=== PATIENT | female | born 1995 | race Two or more races ===

== ENCOUNTER 2024-11-26 03:33 | Emergency (ER) | payer MEDICAID, SELFPAY ==
--- NOTE | 2024-11-26 03:34 | EKG_ITS ---
[facility] Test Date: 2024-11-26 Pat Name: KRUPA PINEDA Department: Room: - Gender: Female Supervisor Dock: : 1995 Requested By: ED Temporary Provider Order Number: [id number] Reading MD: ED Temporary Provider Measurements Intervals [place] Rate: 93 P: 56 [place]: 153 QRS: 30 QRSD: 78 T: 34 QT: 341 QTc: 426 Interpretive Statements SINUS RHYTHM Compared to ECG 01/27/2024 23:21:15 No significant changes /store/S0/[id number]
[2024-11-26 03:35] VITALS: BMI 30.4
[2024-11-26 03:43] VITALS: BP 117/82; PULSE 98; RESP 17; TEMP 36.7; O2SAT 98
--- NOTE | 2024-11-26 03:52 | PD.EDRME ---
Rapid Medical Screening Exam RME Arrival date/time: 11/26/24 03:33 29 yo f present to Ed for c/o rapid hr for 3 day I have greeted and performed a focused initial assessment of this patient. A comprehensive ED assessment and evaluation of the patient, analysis of all test results, and completion of the medical decision making process will be conducted by additional ED providers. Chief Complaint: Arrhythmia/Palpitations Time Seen by Provider: 11/26/24 03:36 Vital signs: Vital Signs Temperature 98.0 F 11/26/24 03:43 Pulse Rate 98 11/26/24 03:43 Respiratory Rate 17 11/26/24 03:43 Blood Pressure 117/82 11/26/24 03:43 Pulse Oximetry (%) 98 11/26/24 03:43 Oxygen Delivery Method Room Air 11/26/24 03:43
[2024-11-26 04:02] LABS: Basophils % (Auto) 0 % (0-2.5); Eosinophils # (Auto) 0.2 Thou/mm3 (0.0-0.5); Eosinophils % (Auto) 2 % (0-10); Hematocrit 35.7 % (36.0-46.0); Hemoglobin 11.9 g/dL (12.0-16.0); Immature Granulocytes % (Auto) 1 % (0-0); Immature Granulocytes Auto 0.05 Thou/mm3 (0.00-0.00); Lymphocytes # (Auto) 2.1 Thou/mm3 (1.0-4.8); Lymphocytes % (Auto) 22 % (10-50); Mean Corpuscular HGB Conc 33.3 g/dl (31.0-37.0); Mean Corpuscular Hemoglobin 27.4 pg (25.0-35.0); Mean Corpuscular Volume 82 fL (80-100); Monocytes # (Auto) 0.6 Thou/mm3 (0.0-0.8); Monocytes % (Auto) 7 % (0-12); Neutrophils # (Auto) 6.3 Thou/mm3 (1.8-7.7); Neutrophils % (Auto) 69 % (37-80); Nucleated Red Blood Cell % 0 /100 WBC (0); Platelet Count 263 Thou/mm3 (140-440); RDW Standard Deviation 40.8 fL (36.4-46.3); Red Blood Count 4.34 Miln/mm3 (4.00-5.20); White Blood Count 9.3 Thou/mm3 (3.6-11.0)
[2024-11-26 04:26] LABS: Alanine Aminotransferase 11 U/L (10-49); Albumin, Serum 4.5 gm/dL (3.5-5.0); Albumin/Globulin Ratio 1.6 (1.2-2.2); Alkaline Phosphatase 89 U/L (46-116); Anion Gap 8 (7-16); Aspartate Amino Transferase 14 U/L (0-34); BUN/Creatinine Ratio 14 Ratio (12-20); Bilirubin,Total 0.5 mg/dL (0.3-1.2); Blood Urea Nitrogen 11 mg/dL (9-23); Calcium 9.3 mg/dL (8.3-10.6); Calcium (Corrected) 9.3 mg/dL (8.5-10.1); Chloride 107 mMol/L (98-107); Creatinine (Component) 0.8 mg/dL (0.6-1.3); Estimated Creatinine Clearance 104.5 mL/min (>60); Globulin 2.8 gm/dL (2.3-3.5); Glucose 163 mg/dL (74-106); HCG,Qualitative Serum Negative; Lipase 39 U/L (12-53); Osmolality,Calculated 280 (275-295); Potassium 3.8 mMol/L (3.4-5.1); Sodium 139 mMol/L (136-145); Total Protein 7.3 gm/dL (5.7-8.2); Troponin I < 0.002 ng/mL (0.0-0.045); eGFR > 60 See Note
--- NOTE | 2024-11-26 05:19 | PD.EDARRY ---
ED Arrhythmia Palp. RME/HPI General Chief Complaint: Arrhythmia/Palpitations Stated Complaint: Heartburn x3 days/palpitations Time Seen by Provider: 11/26/24 03:36 Arrival date/time: 11/26/24 03:33 29 year old female present to emergency room with c/o of intermittent heart burn and palpitation for 3 days SEVERITY: Symptoms are described as being severe with limitations on activities of daily living CONTEXT: The patient is unable to identify any inciting events. DURATION/TIMING: The symptoms started approximately 3 days ago and have been constant since and have been progressive getting worse. ASSOCIATED SYMPTOMS: The patient is unable to identify any other associated symptoms. MODIFYING FACTORS: The patient is unable to identify any alleviating or aggravating symptoms. PERTINENT ROS: no fevers, no cough, no pleuritic pain, no ripping or tearing sensations, denies any lower extremity edema and no unilateral swelling, no chest pain/shortness of breath no nausea,vomiting, diarrhea, no dizziness/headache no rash no loc/syncope episode no abd/back pain REVIEW OF SYSTEMS: See History of Present Illness - with the exception of those mentioned in the history of present illness, all other systems reviewed and reported as negative GENERAL: In general the patient is awake, interactive, in an emergency department gurney. HEAD/EYES/EARS/NOSE/THROAT: normo-cephalic, atraumatic, mucus membranes are moist, anicteric, palpebral conjunctiva is pink, trachea is midline. CARDIOVASCULAR: regular rate and regular rhythm, no murmurs, heart sounds are not distant, strong pulses in all four extremities that are equal and symmetric bilateral upper and lower extremities, normal capillary refill. CHEST/PULMONARY: normal chest rise and fall, good air movement, clear to auscultation bilaterally, normal inspiratory to expiratory ratios without evidence of respiratory distress. NECK: No midline/Paraspinal tenderness, no step off ROM/Strenght intact No Kernig and bruzinski sign. No trauma ABDOMEN: soft, not tender, no masses appreciated BACK: normal range of motion without pain. NEUROLOGICAL: cranio-facial features are symmetric, moves all four extremities equally without obvious limitations or weakness. EXTREMITY: no tenderness to palpation over the long bones or large joints of the bilateral upper and lower extremities, no joint swelling, no joint erythema, no signs of trauma, no unilateral leg swelling and no peripheral edema. SKIN: warm, dry, well-perfused, no jaundice, no rash, no telangiectasias or petechia. PSYCH: calm, cooperative, no evidence of psychosis or agitation RME / HPI RME / HPI narrative: 11/26/24 03:33 29 yo f present to Ed for c/o rapid hr for 3 day I have greeted and performed a focused initial assessment of this patient. A comprehensive ED assessment and evaluation of the patient, analysis of all test results, and completion of the medical decision making process will be conducted by additional ED providers. Related Data Home Medications ?Medication ?Instructions ?Recorded ?Confirmed prenat.vits,aliya,nqj-ktrp-arawk 1 tab PO QDAY 12/07/23 03/10/24 aspirin 81 mg tablet,delayed 81 mg PO QDAY 12/26/23 03/10/24 release insulin aspart U-100 100 unit/mL 10 unit subcut AC 12/26/23 03/10/24 (3 mL) subcutaneous pen (Novolog FlexPen U-100 Insulin aspart) insulin detemir U-100 100 unit/mL 30 unit subcut QAM 12/26/23 03/10/24 (3 mL) subcutaneous pen (Levemir FlexPen) insulin detemir U-100 100 unit/mL 14 unit subcut HS 02/16/24 03/10/24 (3 mL) subcutaneous pen (Levemir FlexPen) Previous Rx's ?Medication ?Instructions ?Recorded acetaminophen 300 mg-codeine 30 mg 1 tab PO Q8H PRN pain #14 tabs 03/12/24 tablet ibuprofen 800 mg tablet 800 mg PO Q8H PRN pain #30 tabs 03/12/24 metronidazole 500 mg tablet 500 mg PO Q12H #14 tabs 03/12/24 Allergies Allergy/AdvReac Type Severity Reaction Status Date / Time No Known Allergies Allergy Verified 03/10/24 07:05 Course Course Course Narrative: Patient presenting with palpitations.? Vital signs were reviewed and were unremarkable.? ECG obtained and reviewed which showed NSR.? Labs obtained as noted above and showed no major abnormalities.? TSH was normal.? Patient without chest pain or shortness of breath to suggest ACS or PE.?? History, physical exam, laboratory, and radiographic findings were discussed with the patient.? At this time, it is felt that the most likely explanation for the patient's symptoms is palpitations.? No pathophysiologic cause of palpitations found at this time.? Given that patient is asymptomatic and has an appropriate rate at this time, patient appears safe for discharge.? The patient expressed understanding of and agreement with this plan.? Symptomatic care was discussed.? I advised that patient refrain from caffeine, tobacco, alcohol or other stimulants.? Patient is to follow up with primary care provider within? week to discuss these findings.? Opportunity was given for questions prior to discharge and all stated questions were answered to the patient's satisfaction.? Home care instructions provided.? Patient remained hemodynamically stable through ED course and was discharged home without event.? Quality Measures none Orders Category Date Time Status EKG (ED ONLY) *Do not use* NOW Care 11/26/24 03:34 Completed EKG (ED Only) Stat Exams 11/26/24 03:34 Draft CBC Stat Lab 11/26/24 03:56 Completed CMP [Comprehensive Metabolic Panel] Stat Lab 11/26/24 03:56 Completed HCG,Qualitative Serum Stat Lab 11/26/24 03:56 Completed Lipase Stat Lab 11/26/24 03:56 Completed TSH [Thyroid Stimulating Hormone] Stat Lab 11/26/24 03:56 Completed Troponin I Stat Lab 11/26/24 03:56 Completed Vital Signs Vital signs: Vital Signs Temperature 98.0 F 11/26/24 03:43 Pulse Rate 98 11/26/24 03:43 Respiratory Rate 17 11/26/24 03:43 Blood Pressure 117/82 11/26/24 03:43 Pulse Oximetry (%) 98 11/26/24 03:43 Oxygen Delivery Method Room Air 11/26/24 03:43 Arrhythmia/Palpitations Patient data External records reviewed:: [facility] previous records Clinical information provided by:: patient Social determinants that could affect healthcare access:: none Patient has the following chronic illnesses:: n/a How is presenting disease/condition affected by chronic disease/condition?: no chronic disease Evaluation data The following diagnostics were reviewed and interpreted by me:: lab results and EKG tracing(s) Lab and/or radiology exams considered but not ordered:: n.a Interpretation Summary: cbc/cmp/trop/tsh/hcg wnl/negative Medications / Prescriptions Medications or Prescriptions considered but not ordered:: n/a Medication administrations:: n/a Consultations Consultation(s) initiated? (list below): No Diagnosis Most likely diagnosis given after review of the tests above:: heart palpatition Admission Indicated Admission indicated?: not indicated Admission Request Was there a request for admission?: No Disposition Plan Disposition Plan: Discharge Discharge Attestation Discharge Attestation: The patient and all family members were given an opportunity to ask questions and understood the discharge instructions. Discharge instructions specifically effects, indications for sooner follow up or return to the emergency department, and the expected course of current diagnosis. Patient condition: Stable Discharge Plan Plan Patient Disposition: HOME (Self Care) Health Concerns: Follow with PMD as directed Return to ED if sx worsen Prescriptions/Referrals Prescriptions/Med Rec: No Action Levemir FlexPen 100 unit/mL (3 mL) insulin pen 14 unit SUBCUT HS Patient Comments: INJECT 30 UNITS SUBCUTANEOUSLY AT 8 AM , AND 10 UNITS AT 10 PM metronidazole 500 mg tablet 500 mg PO Q12H Qty: 14 0RF acetaminophen-codeine 300-30 mg tablet 1 tab PO Q8H PRN (Reason: pain) Qty: 14 0RF ibuprofen 800 mg tablet 800 mg PO Q8H PRN (Reason: pain) Qty: 30 0RF Vitamin Tablet 1 tab PO QDAY aspirin 81 mg tablet,delayed release (DR/EC) 81 mg PO QDAY Patient Comments: TAKE 2 TABLETS BY MOUTH EVERY DAY insulin aspart U-100 [Novolog FlexPen U-100 Insulin] 100 unit/mL (3 mL) insulin pen 10 unit SUBCUT AC Levemir FlexPen 100 unit/mL (3 mL) insulin pen 30 unit SUBCUT QAM Patient Comments: INJECT 30 UNITS SUBCUTANEOUSLY AT 8 AM , AND 10 UNITS AT 10 PM Problem List Clinical Impression: Palpitations Patient/Caregiver Discharge Instructions Education Materials: ED Palpitations Print Language: Danish Stand Alone Forms: Sherry Award Info., Patient Portal Info Letter
[2024-11-26 05:25] VITALS: BP 116/72; PULSE 76; RESP 16; TEMP 36.6; O2SAT 98
== END 2024-11-26 11:59 | disposition home or self-care (01) ==
LOC: SERX 06:49
PROVIDERS: Physician Assistant; Emergency Provider Emergency Medicine; PCP Family Medicine
DX: R00.2 Palpitations (principal)
CPT/HCPCS: 36415; 80053; 83690; 84443; 84484; 84703; 85025; 93005; 99283

== ENCOUNTER 2025-01-01 07:00 | Emergency (ER) | payer MEDICAID, SELFPAY ==
[2025-01-01 07:15] VITALS: BP 121/83; PULSE 83; RESP 17; TEMP 36.9; O2SAT 99; BMI 29.5
--- NOTE | 2025-01-01 07:31 | XR_ITS ---
Examination: CT abdomen and pelvis without contrast. Coronal 3-D reconstructions. Sagittal 2-D reconstructions. Date and time of exam:January 01, 2025 0956 hours Comparison June 12, 2023 INDICATIONS: Onset generalized abdominal pain right flank pain today, history bilateral renal calculi CTDI: vol (mGy): 8.34 DLP: (mGycm): 182 Technique: Axial images of the abdomen have been obtained, 3 mm slice thickness Intravenous contrast material has not been administered. Low dose protocols were performed. One or more of the following dose reduction techniques were used; automated exposure control, adjustment of the mA and/or KV according to patient size, use of iterative reconstruction technique. Findings: No focal liver or splenic lesions Absent gallbladder No pancreatic or adrenal mass 1 mm bilateral renal calculi No hydronephrosis or ureteral calculi Aorta normal size Normal appendix No bowel obstruction or diverticulitis Anteverted uterus No bladder mass or bladder calculi Osseous structures intact IMPRESSION: Tiny bilateral nonobstructing renal calculi No hydronephrosis or ureteral calculi Normal appendix No bladder mass or bladder calculi
[2025-01-01 08:32] LABS: Collection Type, Urine Clean Catch
[2025-01-01 08:47] LABS: Basophils % (Auto) 0 % (0-2.5); Eosinophils # (Auto) 0.1 Thou/mm3 (0.0-0.5); Eosinophils % (Auto) 1 % (0-10); Hematocrit 34.9 % (36.0-46.0); Hemoglobin 11.9 g/dL (12.0-16.0); Immature Granulocytes % (Auto) 1 % (0-0); Immature Granulocytes Auto 0.04 Thou/mm3 (0.00-0.00); Lymphocytes % (Auto) 25 % (10-50); Mean Corpuscular HGB Conc 34.1 g/dl (31.0-37.0); Mean Corpuscular Hemoglobin 27.7 pg (25.0-35.0); Mean Corpuscular Volume 81 fL (80-100); Monocytes # (Auto) 0.6 Thou/mm3 (0.0-0.8); Monocytes % (Auto) 7 % (0-12); Neutrophils # (Auto) 5.5 Thou/mm3 (1.8-7.7); Neutrophils % (Auto) 67 % (37-80); Nucleated Red Blood Cell % 0 /100 WBC (0); Platelet Count 250 Thou/mm3 (140-440); RDW Standard Deviation 41.5 fL (36.4-46.3); Red Blood Count 4.29 Miln/mm3 (4.00-5.20); White Blood Count 8.2 Thou/mm3 (3.6-11.0)
[2025-01-01 08:50] LABS: Bilirubin,Urine Negative (Negative); Blood,Urine Negative (Negative); Clarity,Urine Clear (Clear/Hazy); Color,Urine Lt-Yellow (Lt Yel-Yel); Culture Indicated,Urine Not Indicated; Glucose, Urine Negative (Negative); Ketones,Urine Negative (Negative); Leukocyte Esterase,Urine Positive (Negative); Nitrite,Urine Negative (Negative); Protein,Urine Negative (Neg - Trace); RBC,Urine 2 /hpf (0-3); Specific Gravity,Urine 1.012 (1.001-1.035); Squamous Epithelial Cell,Urine 4 /hpf (0-5); Urobilinogen,Urine Negative mg/dL (0.0-1.0); WBC,Urine 3 /hpf (0-5)
[2025-01-01 09:00] LABS: HCG Qualitative,Urine Negative
[2025-01-01 09:06] LABS: Alanine Aminotransferase 10 U/L (10-49); Albumin, Serum 4.6 gm/dL (3.5-5.0); Albumin/Globulin Ratio 1.6 (1.2-2.2); Alkaline Phosphatase 76 U/L (46-116); Anion Gap 9 (7-16); Aspartate Amino Transferase 16 U/L (0-34); BUN/Creatinine Ratio 10 Ratio (12-20); Bilirubin,Total 0.6 mg/dL (0.3-1.2); Blood Urea Nitrogen 7 mg/dL (9-23); Carbon Dioxide 23.3 mMol/L (20.0-31.0); Chloride 106 mMol/L (98-107); Creatinine (Component) 0.7 mg/dL (0.6-1.3); Estimated Creatinine Clearance 117.7 mL/min (>60); Globulin 2.9 gm/dL (2.3-3.5); Glucose 125 mg/dL (74-106); Lipase 50 U/L (12-53); Osmolality,Calculated 274 (275-295); Potassium 4.2 mMol/L (3.4-5.1); Sodium 138 mMol/L (136-145); Total Protein 7.5 gm/dL (5.7-8.2); eGFR > 60 See Note
--- NOTE | 2025-01-01 10:30 | PD.EDFMALE ---
ED Female Urogenital RME/HPI General Chief complaint: Urogenital-Female Stated complaint: BURNING URINATION WITH LWR BACK / ABD PAIN Time Seen by Provider: 01/01/25 07:07 Arrival date/time: 01/01/25 07:00 29-year-old female with no significant medical problems presents to the emergency department today for complaints of pain with urination and lower back pain and a belly pain Limitations: no limitations Related Data Home Medications ?Medication ?Instructions ?Recorded ?Confirmed prenat.vits,aliya,dun-dheg-zrhcl 1 tab PO QDAY 12/07/23 03/10/24 aspirin 81 mg tablet,delayed 81 mg PO QDAY 12/26/23 03/10/24 release insulin aspart U-100 100 unit/mL 10 unit subcut AC 12/26/23 03/10/24 (3 mL) subcutaneous pen (Novolog FlexPen U-100 Insulin aspart) insulin detemir U-100 100 unit/mL 30 unit subcut QAM 12/26/23 03/10/24 (3 mL) subcutaneous pen (Levemir FlexPen) insulin detemir U-100 100 unit/mL 14 unit subcut HS 02/16/24 03/10/24 (3 mL) subcutaneous pen (Levemir FlexPen) Previous Rx's ?Medication ?Instructions ?Recorded acetaminophen 300 mg-codeine 30 mg 1 tab PO Q8H PRN pain #14 tabs 03/12/24 tablet ibuprofen 800 mg tablet 800 mg PO Q8H PRN pain #30 tabs 03/12/24 metronidazole 500 mg tablet 500 mg PO Q12H #14 tabs 03/12/24 ciprofloxacin HCl 500 mg tablet 500 mg PO BID 7 days #14 tabs 01/01/25 ibuprofen 600 mg tablet 600 mg PO Q6H #30 tabs 01/01/25 Allergies Allergy/AdvReac Type Severity Reaction Status Date / Time No Known Allergies Allergy Verified 01/01/25 07:02 Review of Systems Review of Systems Systems Reviewed: All systems reviewed, normal except as documented Constitutional Constitutional: Reports system reviewed and no additional complaints, except as documented, Denies fever(s) and Denies headache(s) Eyes Eyes: Reports system reviewed and no additional complaints, except as documented and Denies blurry vision ENT Ears, Nose, Mouth, and Throat: Reports system reviewed and no additional complaints, except as documented, Denies headache(s), Denies nasal congestion and Denies nasal discharge Cardiovascular Cardiovascular: Reports system reviewed and no additional complaints, except as documented, Denies chest pain and Denies dyspnea Respiratory Respiratory: Reports system reviewed and no additional complaints, except as documented, Denies chest congestion, Denies cough and Denies dyspnea Gastrointestinal Gastrointestinal: Reports system reviewed and no additional complaints, except as documented and Denies abdominal pain Genitourinary Genitourinary: Reports system reviewed and no additional complaints, except as documented, Reports dysuria, Reports flank pain, Reports pelvic pain, Denies vaginal discharge, Denies vaginal odor and Denies vaginal pruritus Integumentary/Breasts Skin/Breast: Reports system reviewed and no additional complaints, except as documented and Denies rash Neurologic Neurologic: Reports system reviewed and no additional complaints, except as documented, Reports as per HPI and Denies headache(s) Past Medical History Past Medical History NEUROLOGIC: Positive Migraine; Negative Neurological Disorders or Seizures CARDIAC: Negative Cardiac Disorders or Congestive Heart Failure RESPIRATORY: Negative Chronic Obstructive Pulmonary Disease (COPD) or Asthma GASTROINTESTINAL: Positive Obesity; Negative Gastrointestinal Disorders, Hepatitis or Colorectal Cancer GENITOURINARY: Negative Genitourinary Disorders, Renal Disease or Prostate Cancer REPRODUCTIVE: Positive Previous Pregnancies; Negative Breast Cancer or Testicular Cancer MUSCULOSKELETAL: Negative Musculoskeletal Disorders or Bone Cancer ENDOCRINE: Positive Endocrine Disorders and Diabetes Mellitus Type 2; Negative Diabetes Mellitus Type 1 HEMATOLOGIC: Negative Blood Disorders or Sickle Cell Disease PSYCHO/SOCIAL: Positive Depression and Anxiety OTHER HISTORY: Negative Autoimmune Disease, Blood Transfusions, Blood Transfusion Reaction, Anesthesia Reactions, Organ Transplant, Chemotherapy, Radiation Therapy, Hyperbaric Therapy, MRSA, VRSA, Vancomycin-Resistant Enterococci, Human Immunodeficiency Virus (HIV), Chicken Pox, Measles, Mumps, Rubella (Romanian Measles), Pertussis, Clostridium Difficile, Cancer, Breast Cancer, Cervical Cancer, Colorectal Cancer, Lung Cancer, Ovarian Cancer, Prostate Cancer or Testicular Cancer Family History FAMILY HISTORY: Positive Family Surgery; Negative Family Psychiatric Problems, Family Respiratory Disorders, Family Cardiac Disorders, Family Gastrointestinal Problems, Family Cancer or Family Anesthesia Reaction Surgical History SURGICAL: Positive Tonsillectomy and Abdominal Surgery; Negative Section or Organ Transplant Social History SMOKING STATUS: Never smoker SUBSTANCE USE: does not use ED Exam General Limitations: Present no limitations General appearance: Present alert and in no apparent distress Head Head exam: Present atraumatic, normocephalic and normal inspection Eye Eye exam: Present normal appearance, PERRL and EOMI; Absent conjunctival injection ENT ENT exam: Present normal exam, normal oropharynx and mucous membranes moist Neck Neck exam: Present normal inspection, full ROM and trachea midline Chest Chest inspection: Present normal inspection and symmetric chest wall rise Respiratory Respiratory exam: Present normal lung sounds bilaterally; Absent respiratory distress Cardiovascular Cardiovascular exam: Present regular rate, normal rhythm and normal heart sounds Abdominal Exam Abdominal exam: Present soft and normal bowel sounds; Absent distention, tenderness, guarding, rebound or rigidity Extremities Exam Extremities exam: Present normal inspection and full ROM Back Exam Back exam: Present normal inspection and full ROM Neurological Exam Neurological exam: Present alert, oriented X3 and CN II-XII intact Psychiatric Psychiatric exam: Present normal affect and normal mood Skin Skin exam: Present warm, dry, intact and normal color Course Quality Measures none Orders Category Date Time Status CT abdomen pelvis wo con Stat Exams 01/01/25 07:31 Completed CBC Stat Lab 01/01/25 08:17 Completed Chlamydia/GC/TV - PCR Stat Lab 01/01/25 08:11 Completed Comprehensive Metabolic Panel Stat Lab 01/01/25 08:17 Completed HCG Qualitative,Urine Stat Lab 01/01/25 08:11 Completed Lipase Stat Lab 01/01/25 08:17 Completed UA, C/S IF [Urinalysis, C/S if Indicated] Stat Lab 01/01/25 08:11 Completed Vital Signs Vital signs: Vital Signs Temperature 98.4 F 01/01/25 07:15 Pulse Rate 83 01/01/25 07:15 Respiratory Rate 17 01/01/25 07:15 Blood Pressure 121/83 01/01/25 07:15 Pulse Oximetry (%) 99 01/01/25 07:15 Oxygen Delivery Method Room Air 01/01/25 07:15 O2 saturation 99% on room air within normal Urogenital - Female MDM Narrative MDM Narrative:: 29-year-old female with no significant medical problems presents to the emergency department today for complaints of pain with urination and lower back pain and a belly pain On exam patient well-appearing patient does not appear toxic no acute distress Lab work and imaging obtained no acute emergent findings noted As patient has dysuria patient will treat with a course of antibiotics Patient discharged home in no distress to follow-up with primary care doctor in the next 24 to 48 hours and for any worsening symptoms to return to the ER immediately Patient data External records reviewed:: [facility] previous records Clinical information provided by:: patient Social determinants that could affect healthcare access:: none Patient has the following chronic illnesses:: None How is presenting disease/condition affected by chronic disease/condition?: no chronic disease Evaluation data The following diagnostics were reviewed and interpreted by me:: lab results and radiology exam(s) Lab and/or radiology exams considered but not ordered:: Labs radiology obtain Interpretation Summary: Reviewed by me Medications / Prescriptions Medications or Prescriptions considered but not ordered:: Given Medication administrations:: Given Consultations Consultation(s) initiated? (list below): No Diagnosis Urogenital Female Differential Diagnosis: urinary tract infection and cystitis Most likely diagnosis given after review of the tests above:: UTI Admission Indicated Admission indicated?: not indicated Admission Request Was there a request for admission?: No Disposition Plan Disposition Plan: Discharge Discharge Attestation Discharge Attestation: The patient and all family members were given an opportunity to ask questions and understood the discharge instructions. Discharge instructions specifically effects, indications for sooner follow up or return to the emergency department, and the expected course of current diagnosis. Patient condition: Stable Discharge Plan Plan Patient Disposition: HOME (Self Care) Discharge Disposition comment: Stable Patient condition on transfer: Stable Prescriptions/Referrals Prescriptions/Med Rec: New ciprofloxacin HCl 500 mg tablet 500 mg PO BID 7 Days Qty: 14 0RF ibuprofen 600 mg tablet 600 mg PO Q6H Qty: 30 0RF No Action Levemir FlexPen 100 unit/mL (3 mL) insulin pen 14 unit SUBCUT HS Patient Comments: INJECT 30 UNITS SUBCUTANEOUSLY AT 8 AM , AND 10 UNITS AT 10 PM metronidazole 500 mg tablet 500 mg PO Q12H Qty: 14 0RF acetaminophen-codeine 300-30 mg tablet 1 tab PO Q8H PRN (Reason: pain) Qty: 14 0RF ibuprofen 800 mg tablet 800 mg PO Q8H PRN (Reason: pain) Qty: 30 0RF Vitamin Tablet 1 tab PO QDAY aspirin 81 mg tablet,delayed release (DR/EC) 81 mg PO QDAY Patient Comments: TAKE 2 TABLETS BY MOUTH EVERY DAY insulin aspart U-100 [Novolog FlexPen U-100 Insulin] 100 unit/mL (3 mL) insulin pen 10 unit SUBCUT AC Levemir FlexPen 100 unit/mL (3 mL) insulin pen 30 unit SUBCUT QAM Patient Comments: INJECT 30 UNITS SUBCUTANEOUSLY AT 8 AM , AND 10 UNITS AT 10 PM Referrals: No Primary/Family,Physician [Primary Care Provider] - In 1 week Problem List Clinical Impression: Dysuria Patient/Caregiver Discharge Instructions Education Materials: Dysuria Additional Instructions: Please follow up with your primary care doctor in the next 24-48hrs for any worsening symptoms return here immediately Print Language: Faroese Stand Alone Forms: Sherry Award Info., Work/School Release, Patient Portal Info Letter PA/NECK BAND SETTER Supervising Physician PA/DEVANTE Supervising Physician: Dr vivas
[2025-01-02 10:56] LABS: Chlamydia trachomatis PCR Negative (Not Detect); Neisseria Gonorrhoeae DNA PCR Negative (Not Detect); Trichomonas Negative (Negative)
== END 2025-01-01 11:24 | disposition home or self-care (01) ==
PROVIDERS: Nurse Practitioner Primary Care; Emergency Provider Emergency Medicine
DX: R30.0 Dysuria (principal); M54.50 Low back pain, unspecified; R10.9 Unspecified abdominal pain
CPT/HCPCS: 36415; 74176; 80053; 81001; 81025; 83690; 85025; 87491; 87591; 87661; 99284

== ENCOUNTER 2025-01-10 19:33 | Emergency (ER) | payer MEDICAID, SELFPAY ==
[2025-01-10 19:34] VITALS: BMI 29.7
--- NOTE | 2025-01-10 19:40 | EKG_ITS ---
[facility] Test Date: 2025-01-10 Pat Name: KRUPA PINEDA Department: Room: - Gender: Female Plate Straightener: : 1995 Requested By: ED Temporary Provider Order Number: [id number] Reading MD: ED Temporary Provider Measurements Intervals [place] Rate: 101 P: 92 [place]: 350 QRS: 35 QRSD: 73 T: 30 QT: 332 QTc: 430 Interpretive Statements ELECTRONIC ATRIAL PACEMAKER ELECTRONIC VENTRICULAR PACEMAKER ABNORMAL RHYTHM ECG Compared to ECG 11/26/2024 03:45:40 Sinus rhythm no longer present /store/S0/[id number]/[id number]
[2025-01-10 19:45] VITALS: BP 116/81; PULSE 103; RESP 19; TEMP 36.9; O2SAT 98
--- NOTE | 2025-01-11 05:14 | PD.EDCHEST ---
ED Chest Pain RME/HPI General Chief Complaint: Chest Pain Stated Complaint: HEART RATE OVER 130, DIZZINESS, CHEST THIGHTNESS Time Seen by Provider: 01/10/25 21:06 Arrival date/time: 01/10/25 19:33 29F with history of DM presents to ED with several months of sudden CP, dizziness, and elevated HR that lasts for 5-10 minutes, then stops. Patient states she probably has anxiety, but hasn't been diagnosed. Patient has had increased life stressors including recently finding out she is again. Limitations: no limitations Related Data Home Medications ?Medication ?Instructions ?Recorded ?Confirmed prenat.vits,aliya,oyz-uobs-cbyar 1 tab PO QDAY 12/07/23 03/10/24 aspirin 81 mg tablet,delayed 81 mg PO QDAY 12/26/23 03/10/24 release insulin aspart U-100 100 unit/mL 10 unit subcut AC 12/26/23 03/10/24 (3 mL) subcutaneous pen (Novolog FlexPen U-100 Insulin aspart) insulin detemir U-100 100 unit/mL 30 unit subcut QAM 12/26/23 03/10/24 (3 mL) subcutaneous pen (Levemir FlexPen) insulin detemir U-100 100 unit/mL 14 unit subcut HS 02/16/24 03/10/24 (3 mL) subcutaneous pen (Levemir FlexPen) Previous Rx's ?Medication ?Instructions ?Recorded acetaminophen 300 mg-codeine 30 mg 1 tab PO Q8H PRN pain #14 tabs 03/12/24 tablet ibuprofen 800 mg tablet 800 mg PO Q8H PRN pain #30 tabs 03/12/24 metronidazole 500 mg tablet 500 mg PO Q12H #14 tabs 03/12/24 ibuprofen 600 mg tablet 600 mg PO Q6H #30 tabs 01/01/25 Allergies Allergy/AdvReac Type Severity Reaction Status Date / Time No Known Allergies Allergy Verified 01/10/25 19:34 Review of Systems Review of Systems Systems Reviewed: All systems reviewed, normal except as documented Constitutional Constitutional: Reports system reviewed and no additional complaints, except as documented, Denies fever(s) and Denies headache(s) ENT Ears, Nose, Mouth, and Throat: Denies disequilibrium and Denies headache(s) Cardiovascular Cardiovascular: Reports system reviewed and no additional complaints, except as documented, Reports as per HPI, Reports chest pain, Reports dyspnea and Reports palpitations Respiratory Respiratory: Reports system reviewed and no additional complaints, except as documented, Denies cough and Reports dyspnea Gastrointestinal Gastrointestinal: Reports system reviewed and no additional complaints, except as documented, Denies abdominal pain, Denies nausea and Denies vomiting Neurologic Neurologic: Reports system reviewed and no additional complaints, except as documented, Denies confusion, Denies disequilibrium and Denies headache(s) Psychiatric Psychiatric: Denies confusion Endocrine Endocrine: Reports palpitations Past Medical History Past Medical History NEUROLOGIC: Positive Migraine; Negative Neurological Disorders or Seizures CARDIAC: Negative Cardiac Disorders or Congestive Heart Failure RESPIRATORY: Negative Chronic Obstructive Pulmonary Disease (COPD) or Asthma GASTROINTESTINAL: Positive Obesity; Negative Gastrointestinal Disorders, Hepatitis or Colorectal Cancer GENITOURINARY: Negative Genitourinary Disorders, Renal Disease or Prostate Cancer REPRODUCTIVE: Positive Previous Pregnancies; Negative Breast Cancer or Testicular Cancer MUSCULOSKELETAL: Negative Musculoskeletal Disorders or Bone Cancer ENDOCRINE: Positive Endocrine Disorders and Diabetes Mellitus Type 2; Negative Diabetes Mellitus Type 1 HEMATOLOGIC: Negative Blood Disorders or Sickle Cell Disease PSYCHO/SOCIAL: Positive Depression and Anxiety OTHER HISTORY: Negative Autoimmune Disease, Blood Transfusions, Blood Transfusion Reaction, Anesthesia Reactions, Organ Transplant, Chemotherapy, Radiation Therapy, Hyperbaric Therapy, MRSA, VRSA, Vancomycin-Resistant Enterococci, Human Immunodeficiency Virus (HIV), Chicken Pox, Measles, Mumps, Rubella (Faroese Measles), Pertussis, Clostridium Difficile, Cancer, Breast Cancer, Cervical Cancer, Colorectal Cancer, Lung Cancer, Ovarian Cancer, Prostate Cancer or Testicular Cancer Family History FAMILY HISTORY: Positive Family Surgery; Negative Family Psychiatric Problems, Family Respiratory Disorders, Family Cardiac Disorders, Family Gastrointestinal Problems, Family Cancer or Family Anesthesia Reaction Surgical History SURGICAL: Positive Tonsillectomy and Abdominal Surgery; Negative Section or Organ Transplant Social History SMOKING STATUS: Never smoker SUBSTANCE USE: does not use ED Exam General Limitations: Present no limitations General appearance: Present alert, in no apparent distress and anxious Head Head exam: Present atraumatic Eye Eye exam: Present normal appearance, PERRL and EOMI ENT ENT exam: Present normal exam, normal oropharynx and mucous membranes moist Neck Neck exam: Present normal inspection, full ROM and trachea midline Chest Chest inspection: Present normal inspection and symmetric chest wall rise Respiratory Respiratory exam: Present normal lung sounds bilaterally Cardiovascular Cardiovascular exam: Present regular rate, normal rhythm and normal heart sounds Abdominal Exam Abdominal exam: Present soft and normal bowel sounds Extremities Exam Extremities exam: Present normal inspection and full ROM Back Exam Back exam: Present normal inspection and full ROM Neurological Exam Neurological exam: Present alert, oriented X3 and CN II-XII intact Psychiatric Psychiatric exam: Present normal affect and normal mood Skin Skin exam: Present warm, dry, intact and normal color Course Quality Measures none Orders Category Date Time Status EKG (ED ONLY) *Do not use* NOW Care 01/10/25 19:40 Completed EKG (ED Only) Stat Exams 01/10/25 19:40 Draft Vital Signs Vital signs: Vital Signs Temperature 98.4 F 01/10/25 19:45 Pulse Rate 103 H 01/10/25 19:45 Respiratory Rate 19 01/10/25 19:45 Blood Pressure 116/81 01/10/25 19:45 Pulse Oximetry (%) 98 01/10/25 19:45 Oxygen Delivery Method Room Air 01/10/25 19:45 O2 at 98% on RA and WNLs Chest Pain MDM Narrative MDM Narrative:: 29F with history of DM presents to ED with several months of sudden CP, dizziness, and elevated HR that lasts for 5-10 minutes, then stops. Patient states she probably has anxiety, but hasn't been diagnosed. Patient has had increased life stressors including recently finding out she is again. Physical exam reveals clear lungs and RRR. Normal WOB. Patient is afebrile, alert, but anxious. EKG is sinus tach of 101. Note, EKG reading states she has a pacemaker, but patient has never even heard of that. Patient declines further work-up since she has a pending cardiology appt. Patient data External records reviewed:: [facility] previous records Clinical information provided by:: patient Social determinants that could affect healthcare access:: none Patient has the following chronic illnesses:: DM How is presenting disease/condition affected by chronic disease/condition?: exacerbated by Evaluation data The following diagnostics were reviewed and interpreted by me:: EKG tracing(s) Lab and/or radiology exams considered but not ordered:: ordered Interpretation Summary: above Medications / Prescriptions Medications or Prescriptions considered but not ordered:: not ordered Medication administrations:: n/a Consultations Consultation(s) initiated? (list below): No Diagnosis Chest Pain Differential Diagnosis: fracture of rib, pneumothorax, stable angina, unstable angina pectoris, atypical chest pain, st elevation myocardial infarction, costochondritis, chest pain, biliary colic and other (anxiety, panic disorder) Most likely diagnosis given after review of the tests above:: panic disorder Admission Indicated Admission indicated?: not indicated Admission Request Was there a request for admission?: No Disposition Plan Disposition Plan: Discharge Discharge Attestation Discharge Attestation: The patient and all family members were given an opportunity to ask questions and understood the discharge instructions. Discharge instructions specifically effects, indications for sooner follow up or return to the emergency department, and the expected course of current diagnosis. Patient condition: Stable Discharge Plan Plan Patient Disposition: HOME (Self Care) Discharge Disposition comment: Stable Prescriptions/Referrals Prescriptions/Med Rec: No Action Levemir FlexPen 100 unit/mL (3 mL) insulin pen 14 unit SUBCUT HS Patient Comments: INJECT 30 UNITS SUBCUTANEOUSLY AT 8 AM , AND 10 UNITS AT 10 PM metronidazole 500 mg tablet 500 mg PO Q12H Qty: 14 0RF acetaminophen-codeine 300-30 mg tablet 1 tab PO Q8H PRN (Reason: pain) Qty: 14 0RF ibuprofen 800 mg tablet 800 mg PO Q8H PRN (Reason: pain) Qty: 30 0RF ibuprofen 600 mg tablet 600 mg PO Q6H Qty: 30 0RF Vitamin Tablet 1 tab PO QDAY aspirin 81 mg tablet,delayed release (DR/EC) 81 mg PO QDAY Patient Comments: TAKE 2 TABLETS BY MOUTH EVERY DAY insulin aspart U-100 [Novolog FlexPen U-100 Insulin] 100 unit/mL (3 mL) insulin pen 10 unit SUBCUT AC Levemir FlexPen 100 unit/mL (3 mL) insulin pen 30 unit SUBCUT QAM Patient Comments: INJECT 30 UNITS SUBCUTANEOUSLY AT 8 AM , AND 10 UNITS AT 10 PM Problem List Clinical Impression: Panic disorder Patient/Caregiver Discharge Instructions Education Materials: Panic Disorder Tx, ED Panic Attack Additional Instructions: Please follow-up with PCP within 24-48 hours and return immediately if symptoms worsen. Follow up with PCP for possible referral to psych and/or counseling. You can still go to your cards appt. Print Language: Romansh Stand Alone Forms: Patient Portal Info Letter PA/PRODUCT DEVELOPMENT INTERN Supervising Physician PA/PRODUCT DEVELOPMENT INTERN Supervising Physician: Dr. Blankenship
== END 2025-01-10 21:24 | disposition home or self-care (01) ==
LOC: SERX 21:20
PROVIDERS: Emergency Provider Emergency Medicine
DX: F41.0 Panic disorder [episodic paroxysmal anxiety] (principal); R94.31 Abnormal electrocardiogram [ECG] [EKG]; Z95.0 Presence of cardiac pacemaker; O26.899 Other specified pregnancy related conditions, unspecified trimester
CPT/HCPCS: 93005; 99283

== ENCOUNTER 2025-01-11 19:40 | Emergency (ER) | payer MEDICAID, SELFPAY ==
[2025-01-11 19:42] VITALS: BMI 29.7
[2025-01-11 20:30] VITALS: BP 127/92; PULSE 98; RESP 18; TEMP 37.5; O2SAT 100
--- NOTE | 2025-01-11 20:30 | PD.EDVAGBL ---
ED OB Contraction Preg RMI/HPI General Chief complaint: Vaginal Bleeding Stated complaint: VAGINAL SPOTTING AND CRAMPING, DIZZY, Time Seen by Provider: 01/11/25 20:31 Arrival date/time: 01/11/25 19:40 RME / HPI RME / HPI Narrative: This section includes all my notes and documentations, including HPI, PE, and ED course. Donn Blankenship MD HPI: 29 y/o female with Hx of Anxiety, Depression, and Type II DM presents to ED c/o extreme lower abdominal pelvic cramping that radiates to the back, nausea, and spotting. Patient is very early in , possibly 5 weeks, based on LMP in the last week of 12/06. She gave to 3 children. No other complaints. ROS: All negative except as documented in HPI. Physical Exam: General: Alert and oriented. No acute distress when remaining still. Eyes: Conjunctivae and lids clear. ENT: No nasal congestion. Neck: Supple. Heart: RRR. Lungs: No respiratory distress. Good air movement. No rhonchi, wheezing, rales. Abdomen: Soft with equivocal lower abdominal tenderness. Normal bowel sounds. No distension. No rebound or guarding. Back: No CVA tenderness. Skin: Warm and dry. Neuro: Alert and oriented X 3. I reviewed all diagnostic test results. My review of the US report is no ectopic and no IUP. Blood tests and urine tests remarkable for beta-hCG 856. At this point, diagnoses include threatened miscarriage. Treatment here included Arabella Recommended expectant management. Based on my best medical judgment, made decision no further evaluation or treatment indicated at this time. Patient understands and agrees to the discharge instructions customized and printed, see below. Discharge Instructions from Dr. Blankenship: 1.? ? ? After evaluation, the ultrasound didn't show inside the uterus. We may be too early. 2.? ? ? Based on your last menstruation dates, your is only 5 weeks (and only 3 weeks from conception). 3.? ? ? Only time will determine whether you will have a successful or you will have a miscarriage.? If your symptoms stop, you can have a successful .? If your symptoms worsen, you may have a miscarriage.? If you have a miscarriage, unfortunately we won?t be able to save the baby because it?s too early.? Under 20 weeks, unfortunately we can?t help.?? 4.? ? ? See a private doctor on 01/14/2025 for recheck.? No sexual activity until cleared by a doctor taking care of you.?? Asked to consider repeating ultrasound and beta-hCG. This doubles every few days in normal . Today, the level was 896. 5.? ? ? Seek immediate medical care for severe bleeding (soaking more than 3 pads per hour), intolerable pain, or with any concerns.? Donn Blankenship MD Related Data Home Medications ?Medication ?Instructions ?Recorded ?Confirmed prenat.vits,aliya,kqu-kbag-qgome 1 tab PO QDAY 12/07/23 03/10/24 aspirin 81 mg tablet,delayed 81 mg PO QDAY 12/26/23 03/10/24 release insulin aspart U-100 100 unit/mL 10 unit subcut AC 12/26/23 03/10/24 (3 mL) subcutaneous pen (Novolog FlexPen U-100 Insulin aspart) insulin detemir U-100 100 unit/mL 30 unit subcut QAM 12/26/23 03/10/24 (3 mL) subcutaneous pen (Levemir FlexPen) insulin detemir U-100 100 unit/mL 14 unit subcut HS 02/16/24 03/10/24 (3 mL) subcutaneous pen (Levemir FlexPen) Previous Rx's ?Medication ?Instructions ?Recorded acetaminophen 300 mg-codeine 30 mg 1 tab PO Q8H PRN pain #14 tabs 03/12/24 tablet ibuprofen 800 mg tablet 800 mg PO Q8H PRN pain #30 tabs 03/12/24 metronidazole 500 mg tablet 500 mg PO Q12H #14 tabs 03/12/24 ibuprofen 600 mg tablet 600 mg PO Q6H #30 tabs 01/01/25 ondansetron 4 mg disintegrating 4 mg PO TID PRN nausea and 01/11/25 tablet vomiting 30 days #10 tabs oxycodone-acetaminophen 5 mg-325 2 tab PO Q8H PRN pain #10 tabs 01/11/25 mg tablet (Percocet) Allergies Allergy/AdvReac Type Severity Reaction Status Date / Time No Known Allergies Allergy Verified 01/11/25 19:41 Review of Systems Review of Systems Systems Reviewed: All systems reviewed, normal except as documented Past Medical History Past Medical History NEUROLOGIC: Positive Migraine GASTROINTESTINAL: Positive Obesity REPRODUCTIVE: Positive Previous Pregnancies ENDOCRINE: Positive Endocrine Disorders and Diabetes Mellitus Type 2 PSYCHO/SOCIAL: Positive Depression and Anxiety Family History FAMILY HISTORY: Positive Family Surgery Surgical History SURGICAL: Positive Tonsillectomy and Abdominal Surgery ED Exam Narrative Physical exam: Refer to HPI above Course Quality Measures none Orders Category Date Time Status US OB <= 14 weeks fetus Stat Exams 01/11/25 20:32 Completed Amylase Stat Lab 01/11/25 21:23 Completed Beta HCG,Quantitative Stat Lab 01/11/25 21:23 Completed Bilirubin,Direct Stat Lab 01/11/25 21:23 Completed CBC Stat Lab 01/11/25 21:23 Completed CMP [Comprehensive Metabolic Panel] Stat Lab 01/11/25 21:23 Completed Free T4 (Free Thyroxine) Stat Lab 01/11/25 21:23 Completed Magnesium Stat Lab 01/11/25 21:23 Completed PT [Prothrombin Time with INR] Stat Lab 01/11/25 21:23 Completed PTT [Partial Thromboplastin Time] Stat Lab 01/11/25 21:23 Completed TSH [Thyroid Stimulating Hormone] Stat Lab 01/11/25 21:23 Completed UA, C/S IF [Urinalysis, C/S if Indicated] Stat Lab 01/11/25 22:41 Completed Ondansetron Odt [Zofran Odt] Med 01/11/25 20:31 Discontinued 4 mg PO X1 ONE Vital Signs Vital signs: Vital Signs Temperature 99.5 F 01/11/25 20:30 Pulse Rate 98 01/11/25 20:30 Respiratory Rate 18 01/11/25 20:30 Blood Pressure 127/92 H 01/11/25 20:30 Pulse Oximetry (%) 100 01/11/25 20:30 Oxygen Delivery Method Room Air 01/11/25 20:30 Vaginal Bleeding MDM Narrative MDM Narrative: Scribe Attestation: Judy Trujillo am scribing for and in the presence of Dr. Blankenship. Provider Notation: Although this document has been carefully reviewed, there may still be some phonetic and other typographical errors.? These errors are purely grammatical due to imperfections in the software program and should not be construed in any way to? compromise the substance of the patient's medical care during this visit. 29 y/o female with Hx of Anxiety, Depression, and Type II DM presents to ED c/o extreme lower abdominal pelvic cramping that radiates to the back, dizziness, nausea, and vaginal bleeding. She describes the radiating pain as a burning sensation. Patient is very early in , possibly 5 weeks. She has 3 children at home, 1 was delivered via . No other complaints. Patient data External records reviewed:: [facility] previous records (Ed records from 01/11/2025 reviewed. Patient was seen and discharged for Panic disorder.) Clinical information provided by:: patient Social determinants that could affect healthcare access:: mental health (Depression, Anxiety) Patient has the following chronic illnesses:: Migraine, Obesity, Diabetes Mellitus Type 2, Depression and Anxiety How is presenting disease/condition affected by chronic disease/condition?: exacerbated by Evaluation data The following diagnostics were reviewed and interpreted by me:: lab results and radiology exam(s) Lab and/or radiology exams considered but not ordered:: None Interpretation Summary: I reviewed all diagnostic test results. My review of the US report is no ectopic and no IUP. Blood tests and urine tests remarkable for beta-hCG 856. Medications / Prescriptions Medications or Prescriptions considered but not ordered:: None Medication administrations:: Medication Administration History Discontinued Medications Ondansetron HCl (Ondansetron Odt 4 Mg Tabrap) 4 mg PO X1 ONE; Protocol Stop: 01/11/25 20:32 Last Admin: 01/11/25 22:46 Dose: 4 mg Documented By: [facility] Consultations Consultation(s) initiated? (list below): No Diagnosis Vaginal Bleeding Differential Diagnosis: missed , threatened , dysfunctional uterine bleeding, menometrorrhagia, incomplete , ectopic without intrauterine and vaginal bleeding Most likely diagnosis given after review of the tests above:: Threatened miscarriage. Admission Indicated Admission indicated?: not indicated Explain why admission is indicated or not indicated:: Recommended expectant management. Admission Request Was there a request for admission?: No Disposition Plan Disposition Plan: Discharge Discharge Attestation Discharge Attestation: The patient and all family members were given an opportunity to ask questions and understood the discharge instructions. Discharge instructions specifically effects, indications for sooner follow up or return to the emergency department, and the expected course of current diagnosis. Patient condition: Stable Discharge Plan Plan Patient Disposition: HOME (Self Care) Prescriptions/Referrals Prescriptions/Med Rec: New oxycodone-acetaminophen [Percocet] 5-325 mg tablet 2 tab PO Q8H MDD 6 PRN (Reason: pain) Qty: 10 0RF ondansetron 4 mg tablet,disintegrating 4 mg PO TID PRN (Reason: nausea and vomiting) 30 Days Qty: 10 0RF No Action Levemir FlexPen 100 unit/mL (3 mL) insulin pen 14 unit SUBCUT HS Patient Comments: INJECT 30 UNITS SUBCUTANEOUSLY AT 8 AM , AND 10 UNITS AT 10 PM metronidazole 500 mg tablet 500 mg PO Q12H Qty: 14 0RF acetaminophen-codeine 300-30 mg tablet 1 tab PO Q8H PRN (Reason: pain) Qty: 14 0RF ibuprofen 800 mg tablet 800 mg PO Q8H PRN (Reason: pain) Qty: 30 0RF ibuprofen 600 mg tablet 600 mg PO Q6H Qty: 30 0RF Vitamin Tablet 1 tab PO QDAY aspirin 81 mg tablet,delayed release (DR/EC) 81 mg PO QDAY Patient Comments: TAKE 2 TABLETS BY MOUTH EVERY DAY insulin aspart U-100 [Novolog FlexPen U-100 Insulin] 100 unit/mL (3 mL) insulin pen 10 unit SUBCUT AC Levemir FlexPen 100 unit/mL (3 mL) insulin pen 30 unit SUBCUT QAM Patient Comments: INJECT 30 UNITS SUBCUTANEOUSLY AT 8 AM , AND 10 UNITS AT 10 PM Referrals: No Primary/Family,Physician [Primary Care Provider] - In 1 week Problem List Clinical Impression: Threatened miscarriage Patient/Caregiver Discharge Instructions Discharge Activity: activity as tolerated Education Materials: ED Possible Miscarriage ... Additional Instructions: Discharge Instructions from Dr. Blankenship: 1.? ? ? After evaluation, the ultrasound didn't show inside the uterus. We may be too early. 2.? ? ? Based on your last menstruation dates, your is only 5 weeks (and only 3 weeks from conception). 3.? ? ? Only time will determine whether you will have a successful or you will have a miscarriage.? If your symptoms stop, you can have a successful .? If your symptoms worsen, you may have a miscarriage.? If you have a miscarriage, unfortunately we won?t be able to save the baby because it?s too early.? Under 20 weeks, unfortunately we can?t help.?? 4.? ? ? See a private doctor on 01/14/2025 for recheck.? No sexual activity until cleared by a doctor taking care of you.?? Asked to consider repeating ultrasound and beta-hCG. This doubles every few days in normal . Today, the level was 896. 5.? ? ? Seek immediate medical care for severe bleeding (soaking more than 3 pads per hour), intolerable pain, or with any concerns.? Print Language: Hong Konger Stand Alone Forms: Sherry Award Info., Patient Portal Info Letter
--- NOTE | 2025-01-11 20:32 | XR_ITS ---
Examination: Complete OB ultrasound, less than 14 weeks, transabdominal Date and time of exam: January 11, 20252010 hours INDICATIONS: Vaginal bleeding with nausea and dizziness today Technique: Obstetrical ultrasound images less than 14 weeks performed via transabdominal imaging Findings: Uterus 8.5 cm endometrial stripe 1.5 cm No uterine mass or intrauterine gestation Right ovary 3.6 arterial flow Left ovary 3.1 cm arterial flow IMPRESSION: Negative study
[2025-01-11 21:43] LABS: Basophils % (Auto) 0 % (0-2.5); Eosinophils # (Auto) 0.1 Thou/mm3 (0.0-0.5); Eosinophils % (Auto) 1 % (0-10); Hematocrit 33.8 % (36.0-46.0); Hemoglobin 11.3 g/dL (12.0-16.0); Immature Granulocytes % (Auto) 1 % (0-0); Immature Granulocytes Auto 0.05 Thou/mm3 (0.00-0.00); Lymphocytes # (Auto) 2.6 Thou/mm3 (1.0-4.8); Lymphocytes % (Auto) 27 % (10-50); Mean Corpuscular HGB Conc 33.4 g/dl (31.0-37.0); Mean Corpuscular Hemoglobin 27.8 pg (25.0-35.0); Mean Corpuscular Volume 83 fL (80-100); Monocytes # (Auto) 0.6 Thou/mm3 (0.0-0.8); Monocytes % (Auto) 7 % (0-12); Neutrophils # (Auto) 6.3 Thou/mm3 (1.8-7.7); Neutrophils % (Auto) 65 % (37-80); Nucleated Red Blood Cell % 0 /100 WBC (0); Platelet Count 317 Thou/mm3 (140-440); Red Blood Count 4.06 Miln/mm3 (4.00-5.20); White Blood Count 9.6 Thou/mm3 (3.6-11.0)
[2025-01-11 22:03] LABS: Partial Thromboplastin Time 25.7 Seconds (22.0-36.0); Prothrombin Time 11.4 Seconds (9.0-12.2)
[2025-01-11 22:15] LABS: Alanine Aminotransferase 12 U/L (10-49); Albumin, Serum 4.5 gm/dL (3.5-5.0); Albumin/Globulin Ratio 1.7 (1.2-2.2); Alkaline Phosphatase 72 U/L (46-116); Amylase 100 U/L (30-118); Anion Gap 12 (7-16); Aspartate Amino Transferase 17 U/L (0-34); BUN/Creatinine Ratio 9 Ratio (12-20); Beta HCG,Quantitative 856 mIU/mL (<5.0); Bilirubin,Direct 0.2 mg/dL (0.0-0.3); Bilirubin,Total 0.5 mg/dL (0.3-1.2); Blood Urea Nitrogen 8 mg/dL (9-23); Calcium 9.2 mg/dL (8.3-10.6); Calcium (Corrected) 9.2 mg/dL (8.5-10.1); Carbon Dioxide 25.7 mMol/L (20.0-31.0); Chloride 104 mMol/L (98-107); Creatinine (Component) 0.9 mg/dL (0.6-1.3); Estimated Creatinine Clearance 91.8 mL/min (>60); Globulin 2.6 gm/dL (2.3-3.5); Glucose 132 mg/dL (74-106); Magnesium 1.6 mg/dL (1.6-2.6); Osmolality,Calculated 283 (275-295); Potassium 3.8 mMol/L (3.4-5.1); Sodium 142 mMol/L (136-145); Thyroid Stimulating Hormone 1.36 uIU/mL (0.55-4.78); Total Protein 7.1 gm/dL (5.7-8.2); eGFR > 60 See Note
[2025-01-11] MEDS: ONDANSETRON ODT 4 MG TABRAP PO (22:46)
[2025-01-11 22:54] LABS: Collection Type, Urine Clean Catch
[2025-01-11 23:16] LABS: Bacteria,Urine Rare; Bilirubin,Urine Negative (Negative); Blood,Urine Negative (Negative); Clarity,Urine Clear (Clear/Hazy); Color,Urine Yellow (Lt Yel-Yel); Culture Indicated,Urine Not Indicated; Glucose, Urine Negative (Negative); Ketones,Urine Negative (Negative); Leukocyte Esterase,Urine Negative (Negative); Nitrite,Urine Negative (Negative); PH,Urine 6.5 (5.0-7.0); Protein,Urine Negative (Neg - Trace); RBC,Urine 9 /hpf (0-3); Specific Gravity,Urine 1.028 (1.001-1.035); Squamous Epithelial Cell,Urine 8 /hpf (0-5); Urobilinogen,Urine Negative mg/dL (0.0-1.0); WBC,Urine 1 /hpf (0-5)
== END 2025-01-11 23:52 | disposition home or self-care (01) ==
PROVIDERS: Emergency Provider Emergency Medicine
DX: O20.0 Threatened abortion (principal)
CPT/HCPCS: 36415; 76801; 80053; 81001; 82150; 82248; 83735; 84439; 84443; 84702; 85025; 85610; 85730; 99284; Q0162

== ENCOUNTER 2025-01-12 14:41 | Emergency (ER) | payer MEDICAID, SELFPAY ==
[2025-01-12 15:19] VITALS: BP 127/88; PULSE 81; RESP 18; TEMP 36.8; O2SAT 99; BMI 29.7
[2025-01-12] MEDS: ACETAMINOPHEN 325 MG TABLET 650 MG PO (15:46)
[2025-01-12 16:24] LABS: Collection Type, Urine Clean Catch
[2025-01-12 16:40] LABS: Bilirubin,Urine Negative (Negative); Blood,Urine 1+ (Negative); Clarity,Urine Clear (Clear/Hazy); Color,Urine Lt-Yellow (Lt Yel-Yel); Glucose, Urine Trace (Negative); Ketones,Urine Negative (Negative); Leukocyte Esterase,Urine Negative (Negative); Nitrite,Urine Negative (Negative); Protein,Urine Negative (Neg - Trace); RBC,Urine 4 /hpf (0-3); Specific Gravity,Urine 1.029 (1.001-1.035); Squamous Epithelial Cell,Urine 2 /hpf (0-5); Urobilinogen,Urine Negative mg/dL (0.0-1.0); WBC,Urine 1 /hpf (0-5)
[2025-01-12 16:43] LABS: Beta HCG,Quantitative 745 mIU/mL (<5.0)
--- NOTE | 2025-01-12 18:44 | XR_ITS ---
Examination: Retroperitoneal ultrasound, complete Technique: Multiple high resolution grayscale images of the retroperitoneum obtained, including kidneys and bladder. Exam date and time:January 12, 2025 1933 hours INDICATIONS: Left flank pain beginning 3 days ago FINDINGS: Right kidney 12.7 cm in a lordotic 1.2 cm Left kidney 12.8 cm cortex 1.7 cm Moderate renal parenchymal scar formation No hydronephrosis Contracted urinary bladder IMPRESSION: Moderate renal parenchymal scar formation No hydronephrosis or renal calculi
[2025-01-12 19:28] VITALS: BP 121/84; PULSE 86; RESP 19; TEMP 36.5; O2SAT 100
--- NOTE | 2025-01-12 21:20 | PD.EDADULT ---
ED General RME/HPI General Chief complaint: Vaginal Bleeding Stated complaint: VAGINAL BLEEDING 4 WEEKS GESTATION Time Seen by Provider: 01/12/25 15:04 Arrival date/time: 01/12/25 14:41 Related Data Home Medications ?Medication ?Instructions ?Recorded ?Confirmed prenat.vits,aliya,xsr-sory-mmwpt 1 tab PO QDAY 12/07/23 03/10/24 aspirin 81 mg tablet,delayed 81 mg PO QDAY 12/26/23 03/10/24 release insulin aspart U-100 100 unit/mL 10 unit subcut AC 12/26/23 03/10/24 (3 mL) subcutaneous pen (Novolog FlexPen U-100 Insulin aspart) insulin detemir U-100 100 unit/mL 30 unit subcut QAM 12/26/23 03/10/24 (3 mL) subcutaneous pen (Levemir FlexPen) insulin detemir U-100 100 unit/mL 14 unit subcut HS 02/16/24 03/10/24 (3 mL) subcutaneous pen (Levemir FlexPen) Previous Rx's ?Medication ?Instructions ?Recorded acetaminophen 300 mg-codeine 30 mg 1 tab PO Q8H PRN pain #14 tabs 03/12/24 tablet ibuprofen 800 mg tablet 800 mg PO Q8H PRN pain #30 tabs 03/12/24 metronidazole 500 mg tablet 500 mg PO Q12H #14 tabs 03/12/24 ibuprofen 600 mg tablet 600 mg PO Q6H #30 tabs 01/01/25 ondansetron 4 mg disintegrating 4 mg PO TID PRN nausea and 01/11/25 tablet vomiting 30 days #10 tabs oxycodone-acetaminophen 5 mg-325 2 tab PO Q8H PRN pain #10 tabs 01/11/25 mg tablet (Percocet) doxycycline hyclate 100 mg capsule 100 mg PO BID #14 caps 01/12/25 pantoprazole 20 mg tablet,delayed 20 mg PO QAM #14 tabs 01/12/25 release Allergies Allergy/AdvReac Type Severity Reaction Status Date / Time No Known Allergies Allergy Verified 01/12/25 14:45 Course Orders Category Date Time Status CT abdomen pelvis wo con Stat Exams 01/12/25 17:01 Ordered US renal BI Stat Exams 01/12/25 18:44 Completed Beta HCG,Quantitative Stat Lab 01/12/25 16:05 Completed Urinalysis Stat Lab 01/12/25 16:00 Completed Acetaminophen Tab [Tylenol Tab] Med 01/12/25 15:41 Discontinued 650 mg PO X1 ONE Doxycycline [Vibramycin] Med 01/12/25 21:19 Once 100 mg PO X1 ONE Ketorolac Inj [Toradol Inj] Med 01/12/25 19:00 Discontinued 30 mg IM X1 ONE Pantoprazole [Protonix] Med 01/12/25 21:19 Once 20 mg PO X1 ONE Vital Signs Vital signs: Vital Signs Temperature 98.2 F 01/12/25 15:19 Pulse Rate 81 01/12/25 15:19 Respiratory Rate 18 01/12/25 15:19 Blood Pressure 127/88 H 01/12/25 15:19 Pulse Oximetry (%) 99 01/12/25 15:19 Oxygen Delivery Method Room Air 01/12/25 15:19 Discharge Plan Plan Patient Disposition: HOME (Self Care) Discharge Disposition comment: Stable and improved Prescriptions/Referrals Prescriptions/Med Rec: New doxycycline hyclate 100 mg capsule 100 mg PO BID Qty: 14 0RF pantoprazole 20 mg tablet,delayed release (DR/EC) 20 mg PO QAM Qty: 14 0RF No Action Levemir FlexPen 100 unit/mL (3 mL) insulin pen 14 unit SUBCUT HS Patient Comments: INJECT 30 UNITS SUBCUTANEOUSLY AT 8 AM , AND 10 UNITS AT 10 PM metronidazole 500 mg tablet 500 mg PO Q12H Qty: 14 0RF acetaminophen-codeine 300-30 mg tablet 1 tab PO Q8H PRN (Reason: pain) Qty: 14 0RF ibuprofen 800 mg tablet 800 mg PO Q8H PRN (Reason: pain) Qty: 30 0RF ibuprofen 600 mg tablet 600 mg PO Q6H Qty: 30 0RF oxycodone-acetaminophen [Percocet] 5-325 mg tablet 2 tab PO Q8H MDD 6 PRN (Reason: pain) Qty: 10 0RF ondansetron 4 mg tablet,disintegrating 4 mg PO TID PRN (Reason: nausea and vomiting) 30 Days Qty: 10 0RF Vitamin Tablet 1 tab PO QDAY aspirin 81 mg tablet,delayed release (DR/EC) 81 mg PO QDAY Patient Comments: TAKE 2 TABLETS BY MOUTH EVERY DAY insulin aspart U-100 [Novolog FlexPen U-100 Insulin] 100 unit/mL (3 mL) insulin pen 10 unit SUBCUT AC Levemir FlexPen 100 unit/mL (3 mL) insulin pen 30 unit SUBCUT QAM Patient Comments: INJECT 30 UNITS SUBCUTANEOUSLY AT 8 AM , AND 10 UNITS AT 10 PM Referrals: No Primary/Family,Physician [Primary Care Provider] - In 1 week Problem List Clinical Impression: Threatened miscarriage Patient/Caregiver Discharge Instructions Education Materials: ED Possible Miscarriage ... Additional Instructions: Take the antibiotics as prescribed and complete the course even though you may be feeling better. Follow-up with Dr. Humphreys at [facility]. Per , You can come in as a walk-in patient and you will be seen. Follow-up with your primary care physician in 24 to 48 hours. Return to the ED for any new or worsening symptoms. Print Language: Faroese Stand Alone Forms: [employer] Award Info., Work/School Release, Patient Portal Info Letter PA/DEVANTE Supervising Physician PA/MEDICINE TECH Supervising Physician: Dr. Ortega [facility] Medication Administration(s) Medication Administration History Doxycycline Hyclate (Doxycycline 100 Mg Tablet) 100 mg PO X1 ONE Stop: 01/12/25 21:20 Pantoprazole Sodium (Pantoprazole 20 Mg Tablet) 20 mg PO X1 ONE Stop: 01/12/25 21:20 Discontinued Medications Acetaminophen (Acetaminophen 325 Mg Tablet) 650 mg PO X1 ONE Stop: 01/12/25 15:42 Last Admin: 01/12/25 15:46 Dose: 650 mg Documented By: JENNY Ketorolac Tromethamine (Ketorolac Inj 60 Mg/2 Ml Vial) 30 mg IM X1 ONE Stop: 01/12/25 19:01 Last Admin: 01/12/25 18:56 Dose: Not Given Documented By: Non-Admin Reason: Patient Refused
[2025-01-12] MEDS: DOXYCYCLINE 100 MG TABLET PO (21:39)
== END 2025-01-12 21:43 | disposition home or self-care (01) ==
PROVIDERS: Physician Assistant; Emergency Provider Emergency Medicine
DX: O20.0 Threatened abortion (principal); Z3A.01 Less than 8 weeks gestation of pregnancy
CPT/HCPCS: 36415; 76770; 81001; 84702; 99284; A9270

== ENCOUNTER → 2025-01-15 | Outpatient (CLI) | payer MEDICAID, SELFPAY ==
--- NOTE | 2025-01-15 12:20 | XR_ITS ---
Examination: OB Transvaginal ultrasound of the pelvis, complete Technique: Transvaginal sonographic images pelvis performed using mauricio scale imaging Exam date and time: January 15, 2025 1318 hours INDICATIONS: Vaginal bleeding beginning 6 days ago with left lower abdomen and pelvic pain FINDINGS: Uterus 8.1 cm endometrial stripe 1.7 cm No intrauterine gestation or uterine mass Right ovary 3.5 cm arterial flow Left ovary 3.6 cm arterial flow 18 mm follicular cyst with multiple small follicles IMPRESSION: No uterine mass or intrauterine gestation.
== END | disposition home or self-care (01) ==
PROVIDERS: PCP Nurse Practitioner Family; Referring Provider Nurse Practitioner Family; Visit Provider Nurse Practitioner Family
DX: O20.0 Threatened abortion (principal)
CPT/HCPCS: 76817

== ENCOUNTER 2025-06-11 22:46 | Emergency (ER) | payer MEDICAID, SELFPAY ==
[2025-06-11 22:48] VITALS: BMI 31.2
--- NOTE | 2025-06-11 22:55 | EKG_ITS ---
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
[2025-06-11 23:22] VITALS: BP 124/81; PULSE 78; RESP 18; TEMP 36.6; O2SAT 99
--- NOTE | 2025-06-12 00:30 | PD.EDURI ---
Upper Respiratory Inf. RME/HPI General Chief Complaint: Chest Pain Stated Complaint: CHEST THIGHTNESS, SOB, DIZZINESS, WEAKNESS Time Seen by Provider: 06/12/25 00:16 Arrival date/time: 06/11/25 22:46 29F with history of DM and panic disorder presents to ED with 2 days of cough, CP, SOB, and generalized fatigue. Limitations: no limitations Related Data Home Medications ?Medication ?Instructions ?Recorded ?Confirmed prenat.vits,aliya,buf-orvn-nhadw 1 tab PO QDAY 12/07/23 03/10/24 aspirin 81 mg tablet,delayed 81 mg PO QDAY 12/26/23 03/10/24 release insulin aspart U-100 100 unit/mL 10 unit subcut AC 12/26/23 03/10/24 (3 mL) subcutaneous pen (Novolog FlexPen U-100 Insulin aspart) insulin detemir U-100 100 unit/mL 30 unit subcut QAM 12/26/23 03/10/24 (3 mL) subcutaneous pen (Levemir FlexPen) insulin detemir U-100 100 unit/mL 14 unit subcut HS 02/16/24 03/10/24 (3 mL) subcutaneous pen (Levemir FlexPen) Previous Rx's ?Medication ?Instructions ?Recorded acetaminophen 300 mg-codeine 30 mg 1 tab PO Q8H PRN pain #14 tabs 03/12/24 tablet ibuprofen 800 mg tablet 800 mg PO Q8H PRN pain #30 tabs 03/12/24 metronidazole 500 mg tablet 500 mg PO Q12H #14 tabs 03/12/24 ibuprofen 600 mg tablet 600 mg PO Q6H #30 tabs 01/01/25 oxycodone-acetaminophen 5 mg-325 2 tab PO Q8H PRN pain #10 tabs 01/11/25 mg tablet (Percocet) doxycycline hyclate 100 mg capsule 100 mg PO BID #14 caps 01/12/25 pantoprazole 20 mg tablet,delayed 20 mg PO QAM #14 tabs 01/12/25 release Allergies Allergy/AdvReac Type Severity Reaction Status Date / Time No Known Allergies Allergy Verified 06/11/25 22:47 Review of Systems Review of Systems Systems Reviewed: All systems reviewed, normal except as documented Constitutional Constitutional: Reports as per HPI and Reports fatigue Cardiovascular Cardiovascular: Reports as per HPI, Reports chest pain and Reports dyspnea Respiratory Respiratory: Reports as per HPI, Reports cough and Reports dyspnea Endocrine Endocrine: Reports fatigue Past Medical History Past Medical History NEUROLOGIC: Positive Migraine; Negative Neurological Disorders or Seizures CARDIAC: Negative Cardiac Disorders or Congestive Heart Failure RESPIRATORY: Negative Chronic Obstructive Pulmonary Disease (COPD) or Asthma GASTROINTESTINAL: Positive Obesity; Negative Gastrointestinal Disorders, Hepatitis or Colorectal Cancer GENITOURINARY: Negative Genitourinary Disorders, Renal Disease or Prostate Cancer REPRODUCTIVE: Positive Previous Pregnancies; Negative Breast Cancer or Testicular Cancer MUSCULOSKELETAL: Negative Musculoskeletal Disorders or Bone Cancer ENDOCRINE: Positive Endocrine Disorders and Diabetes Mellitus Type 2; Negative Diabetes Mellitus Type 1 HEMATOLOGIC: Negative Blood Disorders or Sickle Cell Disease PSYCHO/SOCIAL: Positive Depression and Anxiety OTHER HISTORY: Negative Autoimmune Disease, Blood Transfusions, Blood Transfusion Reaction, Anesthesia Reactions, Organ Transplant, Chemotherapy, Radiation Therapy, Hyperbaric Therapy, MRSA, VRSA, Vancomycin-Resistant Enterococci, Human Immunodeficiency Virus (HIV), Chicken Pox, Measles, Mumps, Rubella (Welsh Measles), Pertussis, Clostridium Difficile, Cancer, Breast Cancer, Cervical Cancer, Colorectal Cancer, Lung Cancer, Ovarian Cancer, Prostate Cancer or Testicular Cancer Family History FAMILY HISTORY: Positive Family Surgery; Negative Family Psychiatric Problems, Family Respiratory Disorders, Family Cardiac Disorders, Family Gastrointestinal Problems, Family Cancer or Family Anesthesia Reaction Surgical History SURGICAL: Positive Tonsillectomy and Abdominal Surgery; Negative Section or Organ Transplant Social History SMOKING STATUS: Never smoker SUBSTANCE USE: does not use ED Exam General Limitations: Present no limitations General appearance: Present alert and in no apparent distress Head Head exam: Present atraumatic ENT ENT exam: Present normal exam, normal oropharynx and mucous membranes moist Neck Neck exam: Present normal inspection, full ROM and trachea midline Chest Chest inspection: Present normal inspection and symmetric chest wall rise Respiratory Respiratory exam: Present normal lung sounds bilaterally Cardiovascular Cardiovascular exam: Present regular rate, normal rhythm and normal heart sounds Neurological Exam Neurological exam: Present alert and oriented X3 Psychiatric Psychiatric exam: Present normal affect and normal mood Skin Skin exam: Present warm, dry, intact and normal color Course Quality Measures none Orders Category Date Time Status Bedside COVID-19 Antigen Test NOW Care 06/12/25 00:16 Completed EKG (ED ONLY) *Do not use* NOW Care 06/11/25 22:55 Completed EKG (ED Only) Stat Exams 06/11/25 22:55 Draft XR chest 1V portable Stat Exams 06/12/25 00:28 Ordered Vital Signs Vital signs: Vital Signs Temperature 97.9 F 06/11/25 23:22 Pulse Rate 78 06/11/25 23:22 Respiratory Rate 18 06/11/25 23:22 Blood Pressure 124/81 06/11/25 23:22 Pulse Oximetry (%) 99 06/11/25 23:22 Oxygen Delivery Method Room Air 06/11/25 23:22 O2 at 99% on RA and WNLs Upper Respiratory Infection MDM Narrative MDM Narrative:: 29F with history of DM and panic disorder presents to ED with 2 days of cough, CP, SOB, and generalized fatigue. Physical exam reveals clear oropharynx and lungs. RRR. Normal WOB. Speech normal. Patient is afebrile, calm, and alert. EKG is NSR. Swabs neg. Patient eloped. Patient data External records reviewed:: [facility] previous records Clinical information provided by:: patient Social determinants that could affect healthcare access:: mental health Patient has the following chronic illnesses:: DM and psych How is presenting disease/condition affected by chronic disease/condition?: exacerbated by Evaluation data The following diagnostics were reviewed and interpreted by me:: lab results, radiology exam(s) and EKG tracing(s) Lab and/or radiology exams considered but not ordered:: ordered Interpretation Summary: above Medications / Prescriptions Medications or Prescriptions considered but not ordered:: not ordered Medication administrations:: n/a Consultations Consultation(s) initiated? (list below): No Diagnosis Upper Respiratory Differential Diagnosis: upper respiratory infection, croup, otitis media, sinusitis, viral infection, bronchitis, influenza, pharyngitis and other (CAP, anxiety, atypical chest pain) Most likely diagnosis given after review of the tests above:: URI, atypical chest pain Admission Indicated Admission indicated?: not indicated Admission Request Was there a request for admission?: No Disposition Plan Disposition Plan: other (specify) (eloped) Discharge Plan Plan Patient Disposition: Elopement Prescriptions/Referrals Prescriptions/Med Rec: No Action Levemir FlexPen 100 unit/mL (3 mL) insulin pen 14 unit SUBCUT HS Patient Comments: INJECT 30 UNITS SUBCUTANEOUSLY AT 8 AM , AND 10 UNITS AT 10 PM metronidazole 500 mg tablet 500 mg PO Q12H Qty: 14 0RF acetaminophen-codeine 300-30 mg tablet 1 tab PO Q8H PRN (Reason: pain) Qty: 14 0RF ibuprofen 800 mg tablet 800 mg PO Q8H PRN (Reason: pain) Qty: 30 0RF ibuprofen 600 mg tablet 600 mg PO Q6H Qty: 30 0RF oxycodone-acetaminophen [Percocet] 5-325 mg tablet 2 tab PO Q8H MDD 6 PRN (Reason: pain) Qty: 10 0RF doxycycline hyclate 100 mg capsule 100 mg PO BID Qty: 14 0RF pantoprazole 20 mg tablet,delayed release (DR/EC) 20 mg PO QAM Qty: 14 0RF Vitamin Tablet 1 tab PO QDAY aspirin 81 mg tablet,delayed release (DR/EC) 81 mg PO QDAY Patient Comments: TAKE 2 TABLETS BY MOUTH EVERY DAY insulin aspart U-100 [Novolog FlexPen U-100 Insulin] 100 unit/mL (3 mL) insulin pen 10 unit SUBCUT AC Levemir FlexPen 100 unit/mL (3 mL) insulin pen 30 unit SUBCUT QAM Patient Comments: INJECT 30 UNITS SUBCUTANEOUSLY AT 8 AM , AND 10 UNITS AT 10 PM Referrals: Ervin Grissom MD [Primary Care Provider, Family Practice] - In 1 week Problem List Clinical Impression: URI (upper respiratory infection), Atypical chest pain Patient/Caregiver Discharge Instructions Print Language: Turkmen PA/FISH SMOKER Supervising Physician PA/FISH SMOKER Supervising Physician: Dr. Chavez
== END 2025-06-12 02:00 | disposition left against medical advice (07) ==
LOC: SERX 06-12 00:29
PROVIDERS: Emergency Provider Emergency Medicine; PCP Family Medicine
DX: J06.9 Acute upper respiratory infection, unspecified (principal); E11.9 Type 2 diabetes mellitus without complications
CPT/HCPCS: 93005; 99281

== ENCOUNTER 2025-07-15 13:31 | Emergency (ER) | payer MEDICAID, SELFPAY ==
[2025-07-15 13:50] VITALS: BP 110/78; PULSE 82; RESP 16; TEMP 36.9; O2SAT 99; BMI 30.1
--- NOTE | 2025-07-15 13:53 | XR_ITS ---
Examination: Abdomen sonogram, Limited Date and time of exam: July 15, 2025, 1438 hours INDICATIONS: Right lower abdominal pain beginning 4 days ago Technique: Real-time mauricio scale transabdominal sonographic images of the abdomen obtained. Findings: No sonographic visualization appendix IMPRESSION: No sonographic visualization appendix
--- NOTE | 2025-07-15 13:53 | XR_ITS ---
Examination: Complete OB ultrasound, less than 14 weeks, transabdominal Date and time of exam: July 15, 2025, 1439 hours INDICATIONS: Right lower abdominal pelvic pain beginning 4 days ago Technique: Obstetrical ultrasound images less than 14 weeks performed via transabdominal imaging Findings: Uterus 8.6 cm no uterine mass or intrauterine gestation Endometrial stripe 1.2 cm Right ovary 2.7 cm arterial flow Left ovary 3.0 cm arterial flow IMPRESSION: Negative study
[2025-07-15 14:26] LABS: Basophils # (Auto) 0.0 Thou/mm3 (0.0-0.2); Basophils % (Auto) 0 % (0-2.5); Eosinophils # (Auto) 0.0 Thou/mm3 (0.0-0.5); Eosinophils % (Auto) 0 % (0-10); Hematocrit 35.9 % (36.0-46.0); Hemoglobin 12.1 g/dL (12.0-16.0); Immature Granulocytes Auto 0.04 Thou/mm3 (0.00-0.00); Lymphocytes # (Auto) 1.7 Thou/mm3 (1.0-4.8); Lymphocytes % (Auto) 21 % (10-50); Mean Corpuscular HGB Conc 33.7 g/dl (31.0-37.0); Mean Corpuscular Hemoglobin 28.3 pg (25.0-35.0); Mean Corpuscular Volume 84 fL (80-100); Monocytes # (Auto) 0.5 Thou/mm3 (0.0-0.8); Monocytes % (Auto) 6 % (0-12); Neutrophils # (Auto) 6.1 Thou/mm3 (1.8-7.7); Neutrophils % (Auto) 73 % (37-80); Nucleated Red Blood Cell # 0.00 Thou/mm3 (0.00-0.00); Nucleated Red Blood Cell % 0 /100 WBC (0); Platelet Count 275 Thou/mm3 (140-440); RDW Standard Deviation 41.9 fL (36.4-46.3); Red Blood Count 4.27 Miln/mm3 (4.00-5.20); White Blood Count 8.4 Thou/mm3 (3.6-11.0)
[2025-07-15 14:46] LABS: Collection Type, Urine Voided
[2025-07-15 14:50] LABS: Alanine Aminotransferase 11 U/L (10-49); Albumin, Serum 4.8 gm/dL (3.5-5.0); Albumin/Globulin Ratio 1.7 (1.2-2.2); Alkaline Phosphatase 90 U/L (46-116); Anion Gap 10 (7-16); Aspartate Amino Transferase 14 U/L (0-34); BUN/Creatinine Ratio 10 Ratio (12-20); Beta HCG,Quantitative 624 mIU/mL (<5.0); Bilirubin,Total 0.5 mg/dL (0.3-1.2); Blood Urea Nitrogen 9 mg/dL (9-23); Calcium 9.6 mg/dL (8.3-10.6); Calcium (Corrected) 9.6 mg/dL (8.5-10.1); Carbon Dioxide 25.3 mMol/L (20.0-31.0); Chloride 102 mMol/L (98-107); Creatinine (Component) 0.9 mg/dL (0.6-1.3); Estimated Creatinine Clearance 91.5 mL/min (>60); Globulin 2.9 gm/dL (2.3-3.5); Glucose 398 mg/dL (74-106); Osmolality,Calculated 289 (275-295); Potassium 4.1 mMol/L (3.4-5.1); Sodium 137 mMol/L (136-145); Total Protein 7.7 gm/dL (5.7-8.2); eGFR > 60 See Note
[2025-07-15 14:56] LABS: Bacteria,Urine Rare; Bilirubin,Urine Negative (Negative); Blood,Urine Negative (Negative); Clarity,Urine Clear (Clear/Hazy); Color,Urine Lt-Yellow (Lt Yel-Yel); Glucose, Urine 4+ (Negative); Ketones,Urine Negative (Negative); Leukocyte Esterase,Urine Negative (Negative); Nitrite,Urine Negative (Negative); PH,Urine 6.0 (5.0-7.0); Protein,Urine Negative (Neg - Trace); RBC,Urine 2 /hpf (0-3); Specific Gravity,Urine 1.038 (1.001-1.035); Squamous Epithelial Cell,Urine 1 /hpf (0-5); Urobilinogen,Urine Negative mg/dL (0.0-1.0); WBC,Urine 2 /hpf (0-5)
[2025-07-15 15:56] LABS: Base Excess, Venous 1 (-3-3); O2 Saturation, Venous 51 % (96-97); PCO2, Venous 41 mmHg (36-56); PO2, Venous 27 mmHg (15-58); pH, Venous 7.41 (7.33-7.66)
[2025-07-15 16:04] LABS: Beta Hydroxybutyrate 0.1 mmol/L (<0.6)
[2025-07-15] MEDS: INSULIN HUM REGULAR 1 UNIT/0.01 ML (PER UNIT) 10 UNIT IV (17:46)
[2025-07-15] MEDS: SODIUM CHLORIDE 0.9% 1000 ML 1,000 ML 999 ML IV (17:49)
[2025-07-15 19:09] VITALS: BP 112/71; PULSE 85; RESP 18; TEMP 37.1; O2SAT 98
--- NOTE | 2025-07-15 19:12 | PD.EDABDPN ---
ED Abdominal Pain RME/HPI General Chief Complaint: Abdominal Pain Stated complaint: RLQ ABD PAIN X 4 DAYS Time seen by provider: 07/15/25 13:34 Arrival date/time: 07/15/25 13:31 This is a case of 30-year-old female with history of hyperglycemia and diabetes and gestational diabetes came in in the emergency room due to right lower quadrant abdominal pain on and off for 4 days no other symptoms noted denies any vaginal bleeding vaginal discharge vaginal spotting nausea vomiting back pain flank pain patient took test twice and it was positive 4 para 3 4 weeks Limitations: no limitations Related Data Home Medications ?Medication ?Instructions ?Recorded ?Confirmed prenat.vits,aliya,wfb-xbye-wuumi 1 tab PO QDAY 12/07/23 03/10/24 aspirin 81 mg tablet,delayed 81 mg PO QDAY 12/26/23 03/10/24 release insulin aspart U-100 100 unit/mL 10 unit subcut AC 12/26/23 03/10/24 (3 mL) subcutaneous pen (Novolog FlexPen U-100 Insulin aspart) insulin detemir U-100 100 unit/mL 30 unit subcut QAM 12/26/23 03/10/24 (3 mL) subcutaneous pen (Levemir FlexPen) insulin detemir U-100 100 unit/mL 14 unit subcut HS 02/16/24 03/10/24 (3 mL) subcutaneous pen (Levemir FlexPen) Previous Rx's ?Medication ?Instructions ?Recorded acetaminophen 300 mg-codeine 30 mg 1 tab PO Q8H PRN pain #14 tabs 03/12/24 tablet ibuprofen 800 mg tablet 800 mg PO Q8H PRN pain #30 tabs 03/12/24 metronidazole 500 mg tablet 500 mg PO Q12H #14 tabs 03/12/24 ibuprofen 600 mg tablet 600 mg PO Q6H #30 tabs 01/01/25 oxycodone-acetaminophen 5 mg-325 2 tab PO Q8H PRN pain #10 tabs 01/11/25 mg tablet (Percocet) doxycycline hyclate 100 mg capsule 100 mg PO BID #14 caps 01/12/25 pantoprazole 20 mg tablet,delayed 20 mg PO QAM #14 tabs 01/12/25 release Allergies Allergy/AdvReac Type Severity Reaction Status Date / Time No Known Allergies Allergy Verified 07/15/25 13:33 Review of Systems Review of Systems Systems Reviewed: All systems reviewed, normal except as documented Constitutional Constitutional: Reports system reviewed and no additional complaints, except as documented and Reports as per HPI ENT Ears, Nose, Mouth, and Throat: Denies dysphagia and Denies odynophagia Cardiovascular Cardiovascular: Reports system reviewed and no additional complaints, except as documented and Reports as per HPI Respiratory Respiratory: Reports system reviewed and no additional complaints, except as documented and Reports as per HPI Gastrointestinal Gastrointestinal: Reports system reviewed and no additional complaints, except as documented, Reports as per HPI, Reports abdominal pain, Denies belching, Denies bloating, Denies change in bowel habits, Denies change in stool character, Denies coffee ground emesis, Denies constipation, Denies cramping, Denies diarrhea, Denies dyspepsia, Denies dysphagia, Denies early satiety, Denies excessive flatus, Denies fecal incontinence, Denies heartburn, Denies hematemesis, Denies hematochezia, Denies loose stools, Denies melena, Denies nausea, Denies odynophagia, Denies tenesmus and Denies vomiting Genitourinary Genitourinary: Reports system reviewed and no additional complaints, except as documented and Reports as per HPI Neurologic Neurologic: Reports system reviewed and no additional complaints, except as documented and Reports as per HPI Past Medical History Past Medical History NEUROLOGIC: Positive Migraine; Negative Neurological Disorders or Seizures CARDIAC: Negative Cardiac Disorders or Congestive Heart Failure RESPIRATORY: Negative Chronic Obstructive Pulmonary Disease (COPD) or Asthma GASTROINTESTINAL: Positive Obesity; Negative Gastrointestinal Disorders, Hepatitis or Colorectal Cancer GENITOURINARY: Negative Genitourinary Disorders, Renal Disease or Prostate Cancer REPRODUCTIVE: Positive Previous Pregnancies; Negative Breast Cancer or Testicular Cancer MUSCULOSKELETAL: Negative Musculoskeletal Disorders or Bone Cancer ENDOCRINE: Positive Endocrine Disorders and Diabetes Mellitus Type 2; Negative Diabetes Mellitus Type 1 HEMATOLOGIC: Negative Blood Disorders or Sickle Cell Disease PSYCHO/SOCIAL: Positive Depression and Anxiety OTHER HISTORY: Negative Autoimmune Disease, Blood Transfusions, Blood Transfusion Reaction, Anesthesia Reactions, Organ Transplant, Chemotherapy, Radiation Therapy, Hyperbaric Therapy, MRSA, VRSA, Vancomycin-Resistant Enterococci, Human Immunodeficiency Virus (HIV), Chicken Pox, Measles, Mumps, Rubella ([place] Measles), Pertussis, Clostridium Difficile, Cancer, Breast Cancer, Cervical Cancer, Colorectal Cancer, Lung Cancer, Ovarian Cancer, Prostate Cancer or Testicular Cancer Family History FAMILY HISTORY: Positive Family Surgery; Negative Family Psychiatric Problems, Family Respiratory Disorders, Family Cardiac Disorders, Family Gastrointestinal Problems, Family Cancer or Family Anesthesia Reaction Surgical History SURGICAL: Positive Tonsillectomy and Abdominal Surgery; Negative Section or Organ Transplant Social History SMOKING STATUS: Never smoker SUBSTANCE USE: does not use ED Exam General Limitations: Present no limitations General appearance: Present alert, in no apparent distress and other (Patient is awake alert oriented not in distress nontoxic looking well-hydrated) Head Head exam: Present atraumatic Eye Eye exam: Present normal appearance, PERRL and EOMI ENT ENT exam: Present normal exam, normal oropharynx and mucous membranes moist Neck Neck exam: Present normal inspection, full ROM and trachea midline; Absent tenderness, meningismus, lymphadenopathy or thyromegaly Chest Chest inspection: Present normal inspection and symmetric chest wall rise; Absent tenderness Respiratory Respiratory exam: Present normal lung sounds bilaterally; Absent respiratory distress, wheezes, stridor, accessory muscle use or prolonged expiratory phase Cardiovascular Cardiovascular exam: Present regular rate, normal rhythm and normal heart sounds; Absent bradycardia, tachycardia, irregular rhythm, systolic murmur or diastolic murmur Abdominal Exam Abdominal exam: Present soft, tenderness (Mild tenderness on the right lower quadrant but no guarding no rebound no rigidity negative psoas negative straight or negative Rovsing's negative McBurney's negative Marx sign negative CVA tenderness bladder is not distended not) and normal bowel sounds; Absent distention, guarding, rebound, rigidity, diminished bowel sounds, hyperactive bowel sounds, hypoactive bowel sounds, organomegaly, psoas sign, obturator sign, Marx's sign, Rovsing's sign, tenderness at McBurney's Point or hernia Extremities Exam Extremities exam: Present normal inspection and full ROM Back Exam Back exam: Present normal inspection and full ROM Neurological Exam Neurological exam: Present alert, oriented X3, CN II-XII intact, normal gait and reflexes normal; Absent motor sensory deficit Psychiatric Psychiatric exam: Present normal affect and normal mood Skin Skin exam: Present warm, dry, intact, normal color and other (Excellent skin turgor) Course Quality Measures none Orders Category Date Time Status US OB <= 14 weeks fetus Stat Exams 07/15/25 13:53 Completed US abdomen limited Stat Exams 07/15/25 13:53 Completed ABO/RH Type Stat Lab 07/15/25 14:00 Completed Beta HCG,Quantitative Stat Lab 07/15/25 14:00 Completed Beta Hydroxybutyrate Stat Lab 07/15/25 15:50 Completed CBC Stat Lab 07/15/25 14:00 Completed CMP [Comprehensive Metabolic Panel] Stat Lab 07/15/25 14:00 Completed Urinalysis Stat Lab 07/15/25 14:35 Completed Venous Blood Gas Stat Lab 07/15/25 15:50 Completed Insulin Regular Med 07/15/25 15:35 Discontinued 10 unit IV X1 ONE Sodium Chloride 0.9% 1000 ml [Ns] 1,000 ml Med 07/15/25 15:35 Discontinued IV 999 mls/hr Vital Signs Vital signs: Vital Signs Temperature 98.4 F 07/15/25 13:50 Pulse Rate 82 07/15/25 13:50 Respiratory Rate 16 07/15/25 13:50 Blood Pressure 110/78 07/15/25 13:50 Pulse Oximetry (%) 99 07/15/25 13:50 Oxygen Delivery Method Room Air 07/15/25 13:50 Oxygen saturation is 99% in roomair Abdominal Pain MDM MDM Narrative MDM Narrative:: This is a case of 30-year-old female with history of hyperglycemia and diabetes and gestational diabetes came in in the emergency room due to right lower quadrant abdominal pain on and off for 4 days no other symptoms noted denies any vaginal bleeding vaginal discharge vaginal spotting nausea vomiting back pain flank pain patient took test twice and it was positive 4 para 3 4 weeks physical examination patient is awake alert oriented not in distress nontoxic looking well-hydrated well-nourished excellent skin turgor moderate tenderness on the right lower quadrant but no guarding no rebound no rigidity no CVA tenderness bladder is nondistended nontender negative psoas negative straight or negative Rovsing's negative [place]'s and Marx sign negative CVA tenderness vital signs stable BP stable not tachycardic not tachypneic afebrile and nonhypoxic blood test showed no leukocytosis no anemia kidney and liver function is normal no electrolyte imbalance lipase is normal urinalysis is normal beta-hCG showed 624 suggestive of patient blood sugar showed 398 test patient was treated for hyperglycemia anion gap is negative beta hydroxybutyrate is normal venous blood glass is also normal but I do not think the patient is having DKA. Ultrasound of the appendix is normal no appendicitis ultrasound of the pelvis showed no uterine at this point patient was advised to return in the emergency room in 2 days for repeat beta-hCG and pelvic ultrasound just to make sure that the patient is having intrauterine versus ectopic I do not think patient is having miscarriage since the patient has no vaginal bleeding or vaginal patient will follow-up with PCP in 2 days for reevaluation and to see OB management trainer for checkup she was started take multi multivitamin for any worsening symptoms or any emergent concern return precaution in the ER is advised she will also continue to monitor blood sugar and follow-up with PCP to monitor his hyperglycemia and to restart her insuling patient was given a bolus of normal saline and regular insulin blood sugar rechecked and noted to be 151 patient is stable to be dsicharge Patient was discharged with comfortable condition walking with stable gait. Patient verbalized no further complains explained diagnosis and answered patient question. Patient is comfortable with the proposed management plan including the need to follow up with his/her primary care physician and any specialist if applicable Discussed patient for any urgent condition or worsening sx, He/She needed to go to emergency room immediately or call 911. Patient acknowledge the responsibility to follow up as instructed and to monitor her/his symptoms. For any persistence of the symptoms for more than 3-5 days return precaution advised. Discussed the result of the test and was given printed discharge instruction Patient data External records reviewed:: [facility] previous records Clinical information provided by:: patient Social determinants that could affect healthcare access:: none Patient has the following chronic illnesses:: none How is presenting disease/condition affected by chronic disease/condition?: no chronic disease Evaluation data The following diagnostics were reviewed and interpreted by me:: lab results and radiology exam(s) Lab and/or radiology exams considered but not ordered:: reviewed Interpretation Summary: reviewed Medications / Prescriptions Medications or Prescriptions considered but not ordered:: given Medication administrations:: Medication Administration History Discontinued Medications Sodium Chloride (Ns) 1,000 mls @ 999 mls/hr IV .Q1H1M ONE Stop: 07/15/25 16:35 Last Infusion: 07/15/25 18:50 Dose: Infused Documented By: Admin: 07/15/25 17:49 Dose: 999 mls/hr Documented By: INGE Insulin Human Regular (Insulin Hum Regular 1 Unit/0.01 Ml (Per Unit)) 10 unit IV X1 ONE Stop: 07/15/25 15:36 Last Admin: 07/15/25 17:46 Dose: 10 unit Documented By: INGE Co-signed By: LF given Consultations Consultation(s) initiated? (list below): No Diagnosis Differential diagnosis abdominal pain: abdominal pain, acute appendicitis and other (UTI) Most likely diagnosis given after review of the tests above:: abdominal pain in Admission Indicated Admission indicated?: not indicated Explain why admission is indicated or not indicated:: not indicated Admission Request Was there a request for admission?: No Admission Attestation Admission request attestation: not indicated Disposition Plan Disposition Plan: Discharge Discharge Attestation Discharge Attestation: The patient and all family members were given an opportunity to ask questions and understood the discharge instructions. Discharge instructions specifically effects, indications for sooner follow up or return to the emergency department, and the expected course of current diagnosis. Patient condition: Stable Discharge Plan Plan Patient Disposition: HOME (Self Care) Patient condition on transfer: Stable Prescriptions/Referrals Prescriptions/Med Rec: No Action Levemir FlexPen 100 unit/mL (3 mL) insulin pen 14 unit SUBCUT HS Patient Comments: INJECT 30 UNITS SUBCUTANEOUSLY AT 8 AM , AND 10 UNITS AT 10 PM metronidazole 500 mg tablet 500 mg PO Q12H Qty: 14 0RF acetaminophen-codeine 300-30 mg tablet 1 tab PO Q8H PRN (Reason: pain) Qty: 14 0RF ibuprofen 800 mg tablet 800 mg PO Q8H PRN (Reason: pain) Qty: 30 0RF ibuprofen 600 mg tablet 600 mg PO Q6H Qty: 30 0RF oxycodone-acetaminophen [Percocet] 5-325 mg tablet 2 tab PO Q8H MDD 6 PRN (Reason: pain) Qty: 10 0RF doxycycline hyclate 100 mg capsule 100 mg PO BID Qty: 14 0RF pantoprazole 20 mg tablet,delayed release (DR/EC) 20 mg PO QAM Qty: 14 0RF Vitamin Tablet 1 tab PO QDAY aspirin 81 mg tablet,delayed release (DR/EC) 81 mg PO QDAY Patient Comments: TAKE 2 TABLETS BY MOUTH EVERY DAY insulin aspart U-100 [Novolog FlexPen U-100 Insulin] 100 unit/mL (3 mL) insulin pen 10 unit SUBCUT AC Levemir FlexPen 100 unit/mL (3 mL) insulin pen 30 unit SUBCUT QAM Patient Comments: INJECT 30 UNITS SUBCUTANEOUSLY AT 8 AM , AND 10 UNITS AT 10 PM Referrals: Jose Sommer MD [Primary Care Provider] - In 1 week Problem List Clinical Impression: Abdominal pain during , Hyperglycemia Patient/Caregiver Discharge Instructions Education Materials: High Blood Sugar (Hyperglycemia), ED Abdominal Pain, Early Additional Instructions: It is very important to return in the emergency room in 2 days for reevaluation and to repeat beta-hCG and pelvic ultrasound it is very important also to see a OB management trainer in 2 days for reevaluation of possible and for check start taking multivitamins follow-up with primary care physician in 2 days for reevaluation worsening symptoms or any emergent concerns such as nausea vomiting vaginal bleeding vaginal discharge vaginal spotting fever chills nausea vomiting back pain flank pain etc. return to the emergency room immediately or call 911 keep hydrated Pedialyte for hydration is advised continue to monitor your blood sugar twice a day and return to the emergency room if your blood sugar greater than 250 or less than 80 or become symptomatic return to the emergency room immediately or call 911 continue to take your insulin follow-up with your primary care physician to monitor you for hyperglycemia and possible referral to endocrinology Print Language: Chinese Stand Alone Forms: Work/School Release PA/[employer] Supervising Physician VENKATESH/DEVANTE Supervising Physician: Dr arteaga
== END 2025-07-15 19:11 | disposition home or self-care (01) ==
PROVIDERS: Nurse Practitioner Family; Emergency Provider Emergency Medicine; PCP Physician Assistant
DX: O26.891 Other specified pregnancy related conditions, first trimester (principal); R10.31 Right lower quadrant pain; O24.119 Pre-existing type 2 diabetes mellitus, in pregnancy, unspecified trimester; E11.65 Type 2 diabetes mellitus with hyperglycemia; Z79.4 Long term (current) use of insulin; Z3A.01 Less than 8 weeks gestation of pregnancy
CPT/HCPCS: 36415; 76705; 76801; 80053; 81001; 82010; 82803; 84702; 85025; 86900; 86901; 99283; J1815; J7030

== ENCOUNTER 2025-08-03 21:13 | Emergency (ER) | payer MEDICAID, SELFPAY ==
[2025-08-03 21:14] VITALS: BMI 30.8
[2025-08-03 22:03] VITALS: BP 124/83; PULSE 80; RESP 18; TEMP 36.7; O2SAT 97
--- NOTE | 2025-08-03 22:13 | EKG_ITS ---
[facility] Test Date: 2025-08-03 Pat Name: KRUPA PINEDA Department: Room: - Gender: Female Wire [employer]: : 1995 Requested By: Jana Cárdenas Order Number: [id number] Reading MD: Jana Cárdenas Measurements Intervals [place] Rate: 79 P: 46 ME: 156 QRS: 15 QRSD: 81 T: 19 QT: 361 QTc: 414 Interpretive Statements SINUS RHYTHM LOW QRS VOLTAGE IN PRECORDIAL LEADS [QRS DEFLECTION < 1.0 mV IN CHEST LEADS] Compared to ECG 06/11/2025 23:24:07 No significant changes /store/S0/[id number]/[id number].pdf
--- NOTE | 2025-08-03 22:13 | PD.EDRME ---
Rapid Medical Screening Exam RME Arrival date/time: 08/03/25 21:13 This is a case of 30-year-old female who came in in the emergency room due to lower back pain radiating to the suprapubic area today with dizziness and headache patient is 7 weeks 4 para 3 denies any vaginal bleeding vaginal discharge Chief Complaint: Back Pain/Injury Time Seen by Provider: 08/03/25 21:37 Vital signs: Vital Signs Temperature 98.1 F 08/03/25 22:03 Pulse Rate 80 08/03/25 22:03 Respiratory Rate 18 08/03/25 22:03 Blood Pressure 124/83 08/03/25 22:03 Pulse Oximetry (%) 97 08/03/25 22:03 Oxygen Delivery Method Room Air 08/03/25 22:03 Exam: Abdominal exam benign nonsurgical no guarding no rebound no rigidity mild tenderness on the lumbar Clinical Impression: Back pain in
[2025-08-03 23:06] LABS: Basophils # (Auto) 0.0 Thou/mm3 (0.0-0.2); Basophils % (Auto) 0 % (0-2.5); Eosinophils # (Auto) 0.1 Thou/mm3 (0.0-0.5); Eosinophils % (Auto) 1 % (0-10); Hematocrit 33.8 % (36.0-46.0); Hemoglobin 11.4 g/dL (12.0-16.0); Immature Granulocytes Auto 0.04 Thou/mm3 (0.00-0.00); Lymphocytes # (Auto) 2.9 Thou/mm3 (1.0-4.8); Lymphocytes % (Auto) 26 % (10-50); Mean Corpuscular HGB Conc 33.7 g/dl (31.0-37.0); Mean Corpuscular Hemoglobin 28.6 pg (25.0-35.0); Mean Corpuscular Volume 85 fL (80-100); Monocytes # (Auto) 0.8 Thou/mm3 (0.0-0.8); Monocytes % (Auto) 7 % (0-12); Neutrophils # (Auto) 7.5 Thou/mm3 (1.8-7.7); Neutrophils % (Auto) 66 % (37-80); Nucleated Red Blood Cell # 0.00 Thou/mm3 (0.00-0.00); Nucleated Red Blood Cell % 0 /100 WBC (0); Platelet Count 236 Thou/mm3 (140-440); RDW Standard Deviation 41.8 fL (36.4-46.3); Red Blood Count 3.98 Miln/mm3 (4.00-5.20); White Blood Count 11.3 Thou/mm3 (3.6-11.0)
[2025-08-03 23:36] LABS: Alanine Aminotransferase 11 U/L (10-49); Albumin, Serum 4.4 gm/dL (3.5-5.0); Albumin/Globulin Ratio 1.6 (1.2-2.2); Alkaline Phosphatase 75 U/L (46-116); Anion Gap 11 (7-16); Aspartate Amino Transferase 14 U/L (0-34); BUN/Creatinine Ratio 14 Ratio (12-20); Bilirubin,Total 0.3 mg/dL (0.3-1.2); Blood Urea Nitrogen 10 mg/dL (9-23); Calcium 9.2 mg/dL (8.3-10.6); Calcium (Corrected) 9.2 mg/dL (8.5-10.1); Carbon Dioxide 24.1 mMol/L (20.0-31.0); Chloride 104 mMol/L (98-107); Creatinine (Component) 0.7 mg/dL (0.6-1.3); Estimated Creatinine Clearance 119.0 mL/min (>60); Globulin 2.8 gm/dL (2.3-3.5); Glucose 156 mg/dL (74-106); Osmolality,Calculated 279 (275-295); Potassium 3.8 mMol/L (3.4-5.1); Sodium 139 mMol/L (136-145); Total Protein 7.2 gm/dL (5.7-8.2); Troponin I < 0.002 ng/mL (0.0-0.045); eGFR > 60 See Note
--- NOTE | 2025-08-04 00:01 | XR_ITS ---
Examination: Complete OB ultrasound, less than 14 weeks, transabdominal Date and time of exam: August 04, 2025, 0018 hours INDICATIONS: Lower back pain pelvic pressure vaginal bleeding today, diagnosis diabetes Technique: Obstetrical ultrasound images less than 14 weeks performed via transabdominal imaging Findings: A normal shaped single intrauterine gestation is present in the uterus. CRL 0.8 cm corresponds to 6 weeks 6 days gestational age Cardiac motion 137 bpm Ultrasonographic survey of visible and placental structures unremarkable. Amniotic fluid volume appears appropriate for this estimated gestational age. Right ovary 2.8 cm arterial flow Left ovary 3.3 cm arterial flow 21 mm corpus luteum cyst IMPRESSION: Viable intrauterine gestation 6 weeks 6 days.
[2025-08-04 00:09] LABS: Beta HCG,Quantitative 56843 mIU/mL (<5.0)
[2025-08-04 01:27] LABS: Collection Type, Urine Voided
[2025-08-04 01:33] LABS: Bilirubin,Urine Negative (Negative); Blood,Urine Negative (Negative); Clarity,Urine Clear (Clear/Hazy); Color,Urine Lt-Yellow (Lt Yel-Yel); Glucose, Urine 1+ (Negative); Ketones,Urine Negative (Negative); Leukocyte Esterase,Urine Negative (Negative); Nitrite,Urine Negative (Negative); PH,Urine 6.0 (5.0-7.0); Protein,Urine Negative (Neg - Trace); RBC,Urine 3 /hpf (0-3); Specific Gravity,Urine 1.028 (1.001-1.035); Squamous Epithelial Cell,Urine 1 /hpf (0-5); Urobilinogen,Urine Negative mg/dL (0.0-1.0); WBC,Urine 2 /hpf (0-5)
--- NOTE | 2025-08-04 03:11 | PRELIM_ITS ---
Obstetric ultrasound (transabdominal). August 04, 2025 at 0018 hours Clinical history: Vaginal bleeding. Comparison: No prior study is available for comparison. Findings: There is an intrauterine gestation with a single live fetus of mean gestational age 6 weeks and 6 days ([place]-Rump Length= 0.8 cm). cardiac activity is present at heart rate of 137 beats per minute. Estimated due date by ultrasound is 03/24/2026. The uterus measures 10.8 x 6.4 x 6.1 cm. The right ovary measures 2.8 x 1.3 x 1.7 cm. The left ovary measures 3.3 x 2.7 x 2.5 cm and demonstrates a cyst lesion measuring 2.1 x 1.4 x 1.7 cm, likely corpus luteum. Both ovaries demonstrate color flow and spectral waveforms on Doppler evaluation. There is no free fluid in the pelvis. Impression: Intrauterine gestation with a single live fetus of mean gestational age 6 weeks and 6 days. Other findings as described above. Report Electronically Signed By: Fernando Hernández 08/04/2025 3:10:35 AM [EST]
--- NOTE | 2025-08-04 03:30 | PC.NURSE ---
NO ANSWER FOR REVIEW
--- NOTE | 2025-08-04 03:35 | PC.NURSE ---
NO ANSWER FOR REVIEW
--- NOTE | 2025-08-04 03:47 | PC.NURSE ---
NO ANSWER FOR REVIEW
== END 2025-08-04 03:48 | disposition left against medical advice (07) ==
PROVIDERS: Nurse Practitioner Family; Emergency Provider Emergency Medicine; PCP Family Medicine
DX: O99.891 Other specified diseases and conditions complicating pregnancy (principal); M54.50 Low back pain, unspecified; R94.31 Abnormal electrocardiogram [ECG] [EKG]; Z3A.01 Less than 8 weeks gestation of pregnancy; Z53.29 Procedure and treatment not carried out because of patient's decision for other reasons
CPT/HCPCS: 36415; 76801; 80053; 81001; 84484; 84702; 85025; 86900; 86901; 93005; 99283